=== PATIENT | male | born 1950 | race Caucasian/White ===

== ENCOUNTER → 2017-08-30 | Outpatient (CLI) | payer MEDICARE ==
[~2017-08-30] MED LIST: ALBU90OI INH; ALPR.25 PO; ATEN50 PO; CAPT25 PO; CARV25 PO; CEFD300 PO; Coq-10100 MG PO; HYDACE7.5 PO; HYDCHL12.5 PO; IPRA.03NI; L-ARGININE1000 MG PO; Naprosyn500 MG PO; Norco 5-325 Ta1 EACH PO; POLY17UD PO; POTA10T PO; PROM25 PO; SERT50; VITAMINS; ZOLP10 PO; ZOLP12.5 PO; [UNRECOGNIZED DRUG - OTHER] PO
== END | disposition home or self-care (01) ==
LOC: LAB SHORT 18:09
DX: N40.0 Benign prostatic hyperplasia without lower urinary tract symptoms (principal)
CPT/HCPCS: 87086

== ENCOUNTER → 2018-01-19 | Outpatient (CLI) | payer MEDICARE ==
[2018-01-19 12:08] LABS: BASOPHILS ABSOLUTE AUTO 0.07 K/mm3 (0.00-0.23); BASOPHILS PERCENT AUTO 1 % (0-2); EOSINOPHILS ABSOLUTE AUTO 0.12 K/mm3 (0.00-0.68); EOSINOPHILS PERCENT AUTO 1 % (0-6); Hemoglobin 15.1 g/dL (13.5-17.5); IMMATURE GRAN ABSOLUTE AUTO 0.02 K/mm3 (0.00-0.10); IMMATURE GRAN PERCENT AUTO 0 % (0-1); LYMPHOCYTES ABSOLUTE AUTO 1.42 K/mm3 (0.84-5.20); LYMPHOCYTES PERCENT AUTO 15 % (21-46); MONOCYTES ABSOLUTE AUTO 0.82 K/mm3 (0.16-1.47); MONOCYTES PERCENT AUTO 9 % (4-13); Mean Corpuscular HGB 30.6 pg (26.0-34.0); Mean Corpuscular Volume 85 fL (80-100); Mean Platelet Volume 10.2 fL (9.1-12.4); NEUTROPHILS ABSOLUTE AUTO 6.78 K/mm3 (1.96-9.15); NEUTROPHILS PERCENT AUTO 73 % (41-73); Platelet Count 256 K/mm3 (150-400); RDW Coefficient Variation 12.6 % (11.7-14.2); RDW Standard Deviation 38.7 fL (35.1-46.3); Red Blood Cell Count 4.93 M/mm3 (4.30-5.90); White Blood Cell Count 9.23 K/mm3 (4.00-11.30)
[2018-01-19 12:17] LABS: Alanine Aminotransfer (ALT/SGP 28 U/L (12-78); Albumin, Blood 4.1 g/dL (3.4-5.0); Albumin/Globulin Ratio 1.1 (0.8-1.8); Alk Phos 96 U/L (40-126); Anion Gap 10 mmol/L (6-16); Aspartate Aminotrans (AST/SGOT 17 U/L (12-37); Bilirubin, Total 0.4 mg/dL (0.1-1.0); Blood Urea Nitrogen 12 mg/dL (8-24); Bun/Creatinine Ratio 14.3 (12.0-20.0); CO2, Blood 27 mmol/L (21-32); Calcium, Blood 8.9 mg/dL (8.5-10.1); Chloride, Blood 102 mmol/L (98-108); Creatinine, Blood 0.84 mg/dL (0.60-1.20); Globulin, Blood 3.6 g/dL (2.2-4.0); Glomerular Filtration Rate >60 (60-); Glucose, Blood 109 mg/dL (70-99); Potassium, Blood 3.9 mmol/L (3.5-5.5); Sodium, Blood 139 mmol/L (136-145); Total Protein, Blood 7.7 g/dL (6.4-8.2); Troponin I <0.017 ng/mL (0.000-0.040)
== END ==
LOC: LAB SHORT 11:56 → LAB EV 11:56
PROVIDERS: General Practice
DX: R07.9 Chest pain, unspecified (principal); J40 Bronchitis, not specified as acute or chronic
CPT/HCPCS: 80053; 84484; 85025

== ENCOUNTER → 2018-09-24 | Outpatient (CLI) | payer MEDICARE | END | disposition home or self-care (01) | LOC: LAB SHORT 19:24 → LAB 19:24 | DX: J02.9 Acute pharyngitis, unspecified (principal) | CPT/HCPCS: 87081 ==

== ENCOUNTER 2020-03-23 19:54 | Emergency (ER) | payer MEDICARE ==
[~2020-03-23] VITALS: Ht 172.7 cm; Wt 70.3 kg
[2020-03-23 20:25] LABS: BASOPHILS ABSOLUTE AUTO 0.05 K/mm3 (0.00-0.23); BASOPHILS PERCENT AUTO 1 % (0-2); EOSINOPHILS PERCENT AUTO 3 % (0-6); Hematocrit 43.8 % (37.0-53.0); Hemoglobin 15.6 g/dL (13.5-17.5); IMMATURE GRAN ABSOLUTE AUTO 0.02 K/mm3 (0.00-0.10); IMMATURE GRAN PERCENT AUTO 0 % (0-1); LYMPHOCYTES ABSOLUTE AUTO 2.39 K/mm3 (0.84-5.20); LYMPHOCYTES PERCENT AUTO 30 % (21-46); MONOCYTES ABSOLUTE AUTO 0.72 K/mm3 (0.16-1.47); MONOCYTES PERCENT AUTO 9 % (4-13); Mean Corpuscular HGB 31.6 pg (26.0-34.0); Mean Corpuscular HGB Conc 35.6 g/dL (31.5-36.5); Mean Corpuscular Volume 89 fL (80-100); Mean Platelet Volume 10.9 fL (9.1-12.4); NEUTROPHILS ABSOLUTE AUTO 4.66 K/mm3 (1.96-9.15); NEUTROPHILS PERCENT AUTO 58 % (41-73); Platelet Count 208 K/mm3 (150-400); RDW Coefficient Variation 11.8 % (11.7-14.2); RDW Standard Deviation 37.3 fL (35.1-46.3); Red Blood Cell Count 4.93 M/mm3 (4.30-5.90); White Blood Cell Count 8.04 K/mm3 (4.00-11.30)
[2020-03-23 20:42] LABS: Alanine Aminotransfer (ALT/SGP 35 U/L (12-78); Albumin, Blood 3.9 g/dL (3.4-5.0); Albumin/Globulin Ratio 1.1 (0.8-1.8); Alk Phos 73 U/L (50-136); Anion Gap 4 mmol/L (6-16); Aspartate Aminotrans (AST/SGOT 46 U/L (12-37); Bilirubin, Total 0.4 mg/dL (0.1-1.0); Blood Urea Nitrogen 13 mg/dL (8-24); Bun/Creatinine Ratio 17.4 (12.0-20.0); CO2, Blood 24 mmol/L (21-32); Calcium, Blood 8.7 mg/dL (8.5-10.1); Chloride, Blood 106 mmol/L (98-108); Creatinine, Blood 0.75 mg/dL (0.60-1.20); Globulin, Blood 3.7 g/dL (2.2-4.0); Glomerular Filtration Rate >60 (60-); Glucose, Blood 114 mg/dL (70-99); Potassium, Blood 4.8 mmol/L (3.5-5.5); Sodium, Blood 134 mmol/L (136-145); Total Protein, Blood 7.6 g/dL (6.4-8.2)
[2020-03-23] MEDS ORDERED: MOXI400 PO (22:13)
== END 2020-03-23 22:41 | disposition home or self-care (01) ==
LOC: ER 19:54
PROVIDERS: Emergency Medicine
DX: K92.1 Melena (principal); C61 Malignant neoplasm of prostate; F17.210 Nicotine dependence, cigarettes, uncomplicated; Z88.0 Allergy status to penicillin; Z88.8 Allergy status to other drugs, medicaments and biological substances; Z79.899 Other long term (current) drug therapy
CPT/HCPCS: 36415; 74177; 80053; 85025; 99285-25; Q9967

== ENCOUNTER 2021-12-27 01:54 | Inpatient (IN) | payer MEDICARE ==
[~2021-12-27] VITALS: Ht 172.7 cm; Wt 64.0 kg
[~2021-12-27 01:54] MED LIST changes: +MOXI400 PO
[2021-12-27 02:20] LABS: BASOPHILS ABSOLUTE AUTO 0.11 K/mm3 (0.00-0.23); BASOPHILS PERCENT AUTO 1 % (0-2); EOSINOPHILS ABSOLUTE AUTO 0.61 K/mm3 (0.00-0.68); EOSINOPHILS PERCENT AUTO 6 % (0-6); Hematocrit 40.6 % (37.0-53.0); IMMATURE GRAN ABSOLUTE AUTO 0.04 K/mm3 (0.00-0.10); IMMATURE GRAN PERCENT AUTO 0 % (0-1); LYMPHOCYTES ABSOLUTE AUTO 2.69 K/mm3 (0.84-5.20); LYMPHOCYTES PERCENT AUTO 26 % (21-46); MONOCYTES PERCENT AUTO 9 % (4-13); Mean Corpuscular HGB 29.6 pg (26.0-34.0); Mean Corpuscular HGB Conc 34.5 g/dL (31.5-36.5); Mean Corpuscular Volume 86 fL (80-100); Mean Platelet Volume 10.5 fL (9.1-12.4); NEUTROPHILS ABSOLUTE AUTO 5.93 K/mm3 (1.96-9.15); NEUTROPHILS PERCENT AUTO 58 % (41-73); Platelet Count 252 K/mm3 (150-400); RDW Coefficient Variation 12.8 % (11.7-14.2); RDW Standard Deviation 40.2 fL (35.1-46.3); Red Blood Cell Count 4.73 M/mm3 (4.30-5.90); White Blood Cell Count 10.28 K/mm3 (4.00-11.30)
[2021-12-27 02:35] LABS: International Normalized Ratio 1.02; Prothrombin Time Results 10.7 Sec (9.7-11.5)
[2021-12-27 02:39] LABS: Albumin, Blood 3.7 g/dL (3.4-5.0); Albumin/Globulin Ratio 1.2 (0.8-1.8); Bilirubin, Total 0.3 mg/dL (0.1-1.0); Bun/Creatinine Ratio 15.3 (12.0-20.0); Calcium, Blood 8.7 mg/dL (8.5-10.1); Creatinine, Blood 0.85 mg/dL (0.60-1.20); Potassium, Blood 3.6 mmol/L (3.5-5.5); Total Protein, Blood 6.7 g/dL (6.4-8.2)
[2021-12-27 03:26] LABS: Influenza A, PCR NEGATIVE (NEGATIVE); Influenza B, PCR NEGATIVE (NEGATIVE); Resp Syncytial Virus, PCR NEGATIVE (NEGATIVE); SARS-Cov-2 (COVID-19) PCR, MMC NEGATIVE (NEGATIVE)
[2021-12-27 04:33] LABS: Source, Urine Voided
[2021-12-27 04:39] LABS: Bilirubin, Urine Neg (Neg); Blood, Urine Neg (Neg); Glucose Qualitative, Urine Neg (Neg); Ketones, Urine Neg (Neg); Leukocyte Esterase, Urine Neg (Neg); Nitrite, Urine Neg (Neg); Protein, Urine 3+ (Neg); Urobilinogen, Urine NORM (Normal); pH, Urine 6.5 (5.0-8.0)
[2021-12-27 04:46] LABS: Appearance, Urine Clear (Clear); Color, Urine Yellow (P-Yellow)
[2021-12-27 04:47] LABS: Bacteria Not Seen /hpf; Red Blood Cells, Urine Not Seen /hpf (0-2); Squamous Epithelial Cells Not Seen /hpf (Few); White Blood Cells, Urine Not Seen /hpf (0-5)
[2021-12-27] MEDS ORDERED: LISI20 PO (04:48)
[2021-12-27] MEDS ORDERED: ASPI325 PO (18:59)
--- NOTE | 2021-12-27 19:41 | NUR ---
SUMMARY- PT A/O X4. ADMITTED 1415 TO 336. DENIES CHEST PAIN ALL SHIFT. BLOOD PRESURES HIGH SINCE ADMIT. WILL RECEIVE METOPROLOL DOSE HS. KURT VELOZ AWARE TO F/U AND NOTIFY MD IF REMAINS ELEVATED. PT TOLERATING FOOD AND FLUIDS AND HAS NO COMPLAINTS. WILL STAY TONIGHT TO [facility].
--- NOTE | 2021-12-27 19:43 | NUR ---
1415 PT ADMITTED TO ROOM 336 FROM ED IN WHEELCHAIR, SBA AMBULATED TO BED, STEADY ON FEET. ORIENTED TO CALL LIGHT AND ROOM SET UP AND SAFETY. DENIES CHEST PAIN. INSTRUCTED TO CALL IF C.P. OCCURS. TELE SET UP.
[2021-12-28 05:56] LABS: BASOPHILS ABSOLUTE AUTO 0.08 K/mm3 (0.00-0.23); BASOPHILS PERCENT AUTO 1 % (0-2); EOSINOPHILS ABSOLUTE AUTO 0.35 K/mm3 (0.00-0.68); EOSINOPHILS PERCENT AUTO 4 % (0-6); Hematocrit 41.2 % (37.0-53.0); Hemoglobin 14.2 g/dL (13.5-17.5); IMMATURE GRAN ABSOLUTE AUTO 0.04 K/mm3 (0.00-0.10); IMMATURE GRAN PERCENT AUTO 0 % (0-1); LYMPHOCYTES ABSOLUTE AUTO 1.98 K/mm3 (0.84-5.20); LYMPHOCYTES PERCENT AUTO 20 % (21-46); MONOCYTES ABSOLUTE AUTO 0.93 K/mm3 (0.16-1.47); MONOCYTES PERCENT AUTO 9 % (4-13); Mean Corpuscular HGB 30.1 pg (26.0-34.0); Mean Corpuscular HGB Conc 34.5 g/dL (31.5-36.5); Mean Corpuscular Volume 87 fL (80-100); Mean Platelet Volume 10.7 fL (9.1-12.4); NEUTROPHILS ABSOLUTE AUTO 6.47 K/mm3 (1.96-9.15); NEUTROPHILS PERCENT AUTO 66 % (41-73); Platelet Count 203 K/mm3 (150-400); RDW Coefficient Variation 13.1 % (11.7-14.2); RDW Standard Deviation 41.5 fL (35.1-46.3); Red Blood Cell Count 4.72 M/mm3 (4.30-5.90); White Blood Cell Count 9.85 K/mm3 (4.00-11.30)
[2021-12-28 06:17] LABS: Alanine Aminotransfer (ALT/SGP 30 U/L (12-78); Albumin, Blood 3.5 g/dL (3.4-5.0); Albumin/Globulin Ratio 1.2 (0.8-1.8); Alk Phos 66 U/L (50-136); Anion Gap 7 mmol/L (6-16); Aspartate Aminotrans (AST/SGOT 25 U/L (12-37); Bilirubin, Total 0.5 mg/dL (0.1-1.0); Blood Urea Nitrogen 11 mg/dL (8-24); Bun/Creatinine Ratio 14.1 (12.0-20.0); CHOL/HDL RATIO 7.3; CO2, Blood 26 mmol/L (21-32); Calcium, Blood 8.8 mg/dL (8.5-10.1); Chloride, Blood 104 mmol/L (98-108); Cholesterol 284 mg/dL (50-200); Creatinine, Blood 0.78 mg/dL (0.60-1.20); Globulin, Blood 2.9 g/dL (2.2-4.0); Glomerular Filtration Rate 96 (60-); Glucose, Blood 104 mg/dL (70-99); HDL Cholesterol 39 mg/dL (>39); Low Density Lipoprotein Chol 197 mg/dL (0-110); Potassium, Blood 3.8 mmol/L (3.5-5.5); Sodium, Blood 137 mmol/L (136-145); Total Protein, Blood 6.4 g/dL (6.4-8.2); Triglycerides 241 mg/dL (30-160); Very Low Density Lipoprot Chol 48 mg/dL (6-32)
--- NOTE | 2021-12-28 06:40 | NUR ---
PT ARRIVED TO ICU BED 8 FOLLOWING A WRAPPER SORTER CALLED AT 0600, HE DENIES ANY PAIN AT THIS TIME. NO IV FLUIDS INFUSING, SALINE LOCK IN LEFT AC AND LEFT WRIST. LUNGS CLEAR, ABDOMEN SOFT, NON TENDER, FEET WITH PALPABLE PULSES, NO EDEMA. PT'S BP ELEVATED, 214/98. HR58 SATS 97%
--- NOTE | 2021-12-28 06:41 | NUR ---
PT who was admitted around 2 pm yesterday for syncopla episode was being monitered on remote tle all night was as low as 52 sinus val up to 66 & had abn ct pulm angiogram yesterday had CTA ordered for this AM being transported to CT scan when he had second syncopal episode with astole reported by monitor and storage bin tender at 0610 am & rapid response team to bedside . PT had elevated bp 230/110 val pulse 55. room air sat 98 denies chest pain . EKG done. PT transferred to ICU 8 alert talking. & Daughter notified or room transfer & second syncopal event.
--- NOTE | 2021-12-28 07:43 | NUR ---
Received report from Prudence VELOZ. Patient is laying on his right side in bed and awake and able to communicate his needs. He is on RA and sats 99%. Called Dr Rand and she will be in shortly. Echo is done . He is hypertensive systolic 215 and currently 177 after hydrazine. He has 18ga IV in LW and 20ga in LAC both flushed and SL'd. Tried to c all spouse and goes right to voice mail. NANCI TIDWELL
--- NOTE | 2021-12-28 09:30 | NUR ---
Patient up to bathroom without difficulty, no changes to VS, remains hypertensive. Daughter at bedside. construction or leak gang laborer is here to take for temp pacer.
--- NOTE | 2021-12-28 11:27 | NUR ---
[facility] with [facility], received report from Oliver VELOZ. Patient wanted to get out of bed and has been informed not while temp pacer in per Dr Howell. VSS. He remains on RA and sats >95%. Family at bedside.
--- NOTE | 2021-12-28 13:23 | NUR ---
Patient remains SR 60, sats 94 on RA. Patient resting with lights off. No significant changes with patient.
--- NOTE | 2021-12-28 15:59 | NUR ---
Patient 600 ml yellow urine out, He is tolerating small amounts of repositioning. He is tolerating small amounts of snacks and water. He remains on RA and sats >95%. YAW. No changes to temp pacer and have not seen and pacer events.
--- NOTE | 2021-12-28 18:22 | NUR ---
Patient was able to get short nap in and was awakened to eat dinner. He has another 600 ml yellow urine out. He is independent with eating and positioning. Medicated with lisinopril and Hydralazine.No pacer events as now.
--- NOTE | 2021-12-28 22:09 | NUR ---
ASSUMED CARE AT 1900 PATIENT IS ALERT AND ORIENTED X4. 02 SATS 95% ON RA, DENIES SOB. HR SR @80s, TEMPORARY PACER IN RIGHT IJ, DRESSING C/D/I. PATIENT HYPERTENISVE SYSTOLIC UP TO 2O0, TALKED WITH DR. HERNANDEZ AND CHANGED HYDRALAZINE TO Q4 HOURS PRN, SYSTOLIC IN THE 160s CURRENTLY. PATIENT DENIES CP/PRESSURE. DENIES ABDOMINAL PAIN, USES BEDPAN AND URINAL. REPOSITIONS SELF IN BED. CALL LIGHT IN REACH.
[2021-12-29 03:43] LABS: BASOPHILS ABSOLUTE AUTO 0.05 K/mm3 (0.00-0.23); BASOPHILS PERCENT AUTO 0 % (0-2); EOSINOPHILS ABSOLUTE AUTO 0.01 K/mm3 (0.00-0.68); EOSINOPHILS PERCENT AUTO 0 % (0-6); Hematocrit 43.7 % (37.0-53.0); Hemoglobin 15.3 g/dL (13.5-17.5); IMMATURE GRAN ABSOLUTE AUTO 0.05 K/mm3 (0.00-0.10); IMMATURE GRAN PERCENT AUTO 0 % (0-1); LYMPHOCYTES ABSOLUTE AUTO 1.04 K/mm3 (0.84-5.20); LYMPHOCYTES PERCENT AUTO 8 % (21-46); MONOCYTES ABSOLUTE AUTO 1.02 K/mm3 (0.16-1.47); MONOCYTES PERCENT AUTO 8 % (4-13); Mean Corpuscular HGB 29.7 pg (26.0-34.0); Mean Corpuscular Volume 85 fL (80-100); Mean Platelet Volume 10.4 fL (9.1-12.4); NEUTROPHILS ABSOLUTE AUTO 11.09 K/mm3 (1.96-9.15); NEUTROPHILS PERCENT AUTO 84 % (41-73); Platelet Count 243 K/mm3 (150-400); RDW Coefficient Variation 12.9 % (11.7-14.2); RDW Standard Deviation 40.3 fL (35.1-46.3); Red Blood Cell Count 5.16 M/mm3 (4.30-5.90); White Blood Cell Count 13.26 K/mm3 (4.00-11.30)
[2021-12-29 04:02] LABS: Albumin, Blood 3.9 g/dL (3.4-5.0); Albumin/Globulin Ratio 1.2 (0.8-1.8); Bilirubin, Total 0.6 mg/dL (0.1-1.0); Bun/Creatinine Ratio 14.2 (12.0-20.0); Calcium, Blood 9.2 mg/dL (8.5-10.1); Creatinine, Blood 0.85 mg/dL (0.60-1.20); Globulin, Blood 3.2 g/dL (2.2-4.0); Potassium, Blood 3.4 mmol/L (3.5-5.5); Total Protein, Blood 7.1 g/dL (6.4-8.2)
--- NOTE | 2021-12-29 06:16 | NUR ---
SHIFT SUMMARY PATIENT ALERT AND ORIENTED X4. 02 SATS >93% ON RA, DENIES SOB. HR 80s-105, NSR. TEMP PACER TO RIGHT IJ. BP WITH SYSTOLIC 140s-160s, MEDICATED PER EMAR. PATIENT ABLE TO REPOSITION SELF. USES URINAL AND BEDPAN. REPLACED POTASSIUM THIS AM. CALL LIGHT IN REACH
--- NOTE | 2021-12-29 08:58 | NUR ---
[place] of Care: Care assumed at 0700hr. Patient sleeping and easily roused to verbal stimuli. A/o x4. Denies pain, discomfort, SOB, or dyspnea. VSS, spO2-96% on RA. Temp-venous pacer to rt IJ, [place] HR shows sinus rhythm in the 80's to 105. Dressing to temp-pacer CDI. Unable to assess numeric markings r/t bundled wiring beneath dressing. Using urinal in bed to void without difficulty. Peripheral IV to lt AC patent and intact. Peripheral IV to lt wrist D/C'd per pain when flushing IV. Plan to place additional peripheral IV. Call light in reach, makes needs known. Will continue to monitor.
--- NOTE | 2021-12-29 11:39 | NUR ---
Pt. is awake in bed and welcomes my visit. Pt. is pleasant and quickly displays evidence of being a man of shannan. Listen pastorally and build rapport. Facilitated a life review. Spouse arrived midway through the visit. Pt. has no present significant areas of stress. Prayed with Pt. and spouse. Pt. displays evidence of agreement and hope. Pt. verbalizes gratitude for the spiritual care visit, and invited this home office claims examiner to return.
[2021-12-29 12:23] LABS: Bun/Creatinine Ratio 17.9 (12.0-20.0); Calcium, Blood 9.7 mg/dL (8.5-10.1); Creatinine, Blood 0.78 mg/dL (0.60-1.20); Potassium, Blood 3.7 mmol/L (3.5-5.5)
--- NOTE | 2021-12-29 17:42 | NUR ---
Shift Summary: No significant changes throughout shift. [place] heart rate/rhythm at all times, no pacing via temp pacer to rt IJ. Heart rate/rhythm sinus in the 70's-80's, while sleeping, but increasing to the 90's-low 100's when awake. Dr. Grijalva started 25mg of metoprolol ER this morning. Patient's BP also increased to systolic of 170's-180's, effectively managed with x2 doses of prn hydralazine. Dr. Grijalva contacted regarding increase in HR and BP this afternoon. Received order to increase metoprolol from once daily to BID. All other VSS stable throughout shift. Continues to deny pain, discomfort, SOB, or dyspnea. Tolerating regular adult diet without difficulty. Voiding using urinal in bed and BM via bedpan. Temp-pacer dressing to rt IJ remains C/D/I. Call light in reach, makes needs known. Will continue to monitor until report to NOC shift RN.
--- NOTE | 2021-12-29 19:55 | NUR ---
ASSUMED CARE OF PT AT 191. REPORT RECEIVED AT BEDSIDE. INSPECTED TEMP PACER SETTINGS AND LINE PLACEMENT. VERIFIED WELL WITH THIS SHIFT CHARGE NURSE, MAGDIEL ALBA MEASUREMENT THAT SHE OBSERVED FROM PREVIOUS DAY WAS CONSISTANT. PT VERBALIZES CONCERNS ABOUT HIS TEMPERATURE 100.1. TEACHING DONE ON THIS. WILL CONTINUE TO TREND. NO COMPLAINTS OF CHEST PAIN OR PRESSURE. DOES STATE THAT HE HAS MILD HEADACHE. NO INTERENTION REQUESTED. WILL REVIEW CHART AND PLAN OF CARE FOR THIS PT.
--- NOTE | 2021-12-30 03:31 | NUR ---
PT NOTED TO HAVE A SLEEP APNEIC-TYPE RESPIRATION PATTERN. DURING THIS TIME, PT WOULD DESATURATE TO 84-86 PERCENT ON ROOM AIR. DID PLACE 2 L/M O2 PER NASAL CANNULA. PT HAS BEEN MAINTIANING > 90 PERCENT AFTER THIS. PT STATED THAT HE HAS NEVER HAD A SLEEP STUDY OR BEEN TOLD HE MAY HAVE SLEEP APNEA. DID ENCOURAGE PT TO SPEAK WITH HIS PCP TO ADDRESS THIS. WILL CONTINUE TO MONITOR.
[2021-12-30 04:26] LABS: BASOPHILS ABSOLUTE AUTO 0.07 K/mm3 (0.00-0.23); BASOPHILS PERCENT AUTO 1 % (0-2); EOSINOPHILS ABSOLUTE AUTO 0.21 K/mm3 (0.00-0.68); EOSINOPHILS PERCENT AUTO 2 % (0-6); Hematocrit 42.4 % (37.0-53.0); Hemoglobin 14.8 g/dL (13.5-17.5); IMMATURE GRAN ABSOLUTE AUTO 0.03 K/mm3 (0.00-0.10); IMMATURE GRAN PERCENT AUTO 0 % (0-1); LYMPHOCYTES ABSOLUTE AUTO 1.71 K/mm3 (0.84-5.20); LYMPHOCYTES PERCENT AUTO 18 % (21-46); MONOCYTES ABSOLUTE AUTO 1.13 K/mm3 (0.16-1.47); MONOCYTES PERCENT AUTO 12 % (4-13); Mean Corpuscular HGB 29.8 pg (26.0-34.0); Mean Corpuscular HGB Conc 34.9 g/dL (31.5-36.5); Mean Corpuscular Volume 86 fL (80-100); Mean Platelet Volume 10.4 fL (9.1-12.4); NEUTROPHILS ABSOLUTE AUTO 6.32 K/mm3 (1.96-9.15); NEUTROPHILS PERCENT AUTO 67 % (41-73); Platelet Count 212 K/mm3 (150-400); RDW Coefficient Variation 13.2 % (11.7-14.2); RDW Standard Deviation 40.9 fL (35.1-46.3); Red Blood Cell Count 4.96 M/mm3 (4.30-5.90); White Blood Cell Count 9.47 K/mm3 (4.00-11.30)
[2021-12-30 04:43] LABS: Bun/Creatinine Ratio 17.4 (12.0-20.0); Calcium, Blood 9.4 mg/dL (8.5-10.1); Creatinine, Blood 0.92 mg/dL (0.60-1.20); Potassium, Blood 4.2 mmol/L (3.5-5.5)
--- NOTE | 2021-12-30 05:45 | NUR ---
PT HAS BEEN ABLE TO REST SOME THIS NIGHT. NO COMPLAINTS OF CHEST PAIN OR PRESSURE. NO COMPLAINTS OF DYSPNEA. DOES HAVE 2 L/M OXYGEN PER NASAL CANNULA SECONDARY TO PROBABLE SLEEP APNEIC TYPE RESPIRATIONS WHILE ASLEEP. PT HAS BEEN ABLE TO MOVE ABOUT BED ON HIS OWN. HAVE NOT HAD ANY PACING THIS NIGHT. HEART RATE REMAINS NEAR 100. SEE VITAL SIGN FLOWSHEET FOR DETAILS. WILL CONTINUE TO MONITOR PT, AND WILL REPORT OFF TO ONCOMING RN.
--- NOTE | 2021-12-30 06:46 | NUR ---
DR RODRÍGUEZ COMES IN TO SEE PT.
--- NOTE | 2021-12-30 07:19 | NUR ---
TOOK OVER CARE OF PT AT 0715, PT RESTING ON 2LNC
--- NOTE | 2021-12-30 15:59 | NUR ---
SUMMARY NEURO; WNL LUNGS; WNL SKIN;WNL CARDIAC; TEMP PACER IN PLACE, PT HR NOT LOW ENOUGH TO INITIATE GI; BM WITH PELLETS AND LOOSE MICHELE : WNL
--- NOTE | 2021-12-30 20:00 | NUR ---
ASSUMED CARE OF PT AT 1915. REPORT RECEIVED. PT PRESENTS IN BED BED VISITING WITH FAMILY. PT DENIES COMPLAINTS OF CHEST PAIN OR PRESSURE. NO COMPLAINTS OF VERTIGO OR SYNCOPE. PT ALERT AND ORIENTED, PLEASANT AND COOPERATIVE WITH CARE AND ASSESSMENT. PT CONTINUES WITH TEMPORARY PACER IN PLACE. WILL REVIEW CHART AND PLAN OF CARE FOR THIS PT.
--- NOTE | 2021-12-31 03:11 | NUR ---
PT HAS HAD SOME HEART RATES THAT APPROACHED LOW 60'S BPM. NO PACER SPIKING DETECTED. PT TEACHING HAS BEEN DONE ON METOPROLOL AND AMLODIPINE. PT STATES THAT HE FELT IT MADE HIS BLOOD PRESSURES DROP SEVERELY FROM DOSE HE TOOK IN AM. REVEIWED CHART AND MONITORING SYSTEM. WAS NOT ABLE TO FIND THAT HE HAD HYPOTENSIVE EPISODES AFTER THE MEDICATION. HAVE GOTTEN PT UP TWICE TO BEDSIDE COMMODE WHERE HE VOIDS Q.S. HAS TWO SMALL BM'S. AGAIN NO COMPLAINTS OF CHEST PAIN OR PRESSURES.
[2021-12-31 05:52] LABS: BASOPHILS ABSOLUTE AUTO 0.07 K/mm3 (0.00-0.23); BASOPHILS PERCENT AUTO 1 % (0-2); EOSINOPHILS ABSOLUTE AUTO 0.48 K/mm3 (0.00-0.68); EOSINOPHILS PERCENT AUTO 5 % (0-6); Hematocrit 42.3 % (37.0-53.0); Hemoglobin 14.6 g/dL (13.5-17.5); IMMATURE GRAN ABSOLUTE AUTO 0.05 K/mm3 (0.00-0.10); IMMATURE GRAN PERCENT AUTO 1 % (0-1); LYMPHOCYTES ABSOLUTE AUTO 1.88 K/mm3 (0.84-5.20); LYMPHOCYTES PERCENT AUTO 21 % (21-46); MONOCYTES ABSOLUTE AUTO 0.87 K/mm3 (0.16-1.47); MONOCYTES PERCENT AUTO 10 % (4-13); Mean Corpuscular HGB 29.8 pg (26.0-34.0); Mean Corpuscular HGB Conc 34.5 g/dL (31.5-36.5); Mean Corpuscular Volume 86 fL (80-100); Mean Platelet Volume 10.1 fL (9.1-12.4); NEUTROPHILS ABSOLUTE AUTO 5.48 K/mm3 (1.96-9.15); NEUTROPHILS PERCENT AUTO 62 % (41-73); Platelet Count 193 K/mm3 (150-400); RDW Coefficient Variation 12.8 % (11.7-14.2); RDW Standard Deviation 40.6 fL (35.1-46.3); White Blood Cell Count 8.83 K/mm3 (4.00-11.30)
[2021-12-31 06:42] LABS: Bun/Creatinine Ratio 20.3 (12.0-20.0); Calcium, Blood 9.2 mg/dL (8.5-10.1); Creatinine, Blood 0.89 mg/dL (0.60-1.20); Potassium, Blood 4.2 mmol/L (3.5-5.5)
--- NOTE | 2021-12-31 07:12 | NUR ---
PT ABLE TO REST SOME THIS NIGHT. REMAINS WITHOUT ANY NEED FOR ASSIST PACING FROM TRANSVENOUS PACER. PT HAS BEEN ABLE TO GET UP TO BEDSIDE COMMODE SEVERAL TIMES WITH STANDBY ASSIST WITHOUT BEING DIZZY. WILL CONTINUE TO MONITOR PT, AND WILL REPORT OFF TO ONCOMING RN.
--- NOTE | 2021-12-31 07:13 | NUR ---
TOOK OVER CARE OF PT AT 0700, PT RESTING ON RA
--- NOTE | 2021-12-31 14:30 | NUR ---
Assumed care of patient from Paula RN. Assisted patient to bathroom and was SBA with cords. No changes to VS when getting up and back to bed. Patient is independent with positioning for comfort. He remains on RA and sats >95
--- NOTE | 2021-12-31 18:10 | NUR ---
Patient has been resting since taken over care and has cesilia up once to bathroom with SBA. He is currently up in chair eating dinner. He asked for anti-diahhrea and talked with Dr Silvestre and gave order. VSS, he denies any pain or need for intervention.
--- NOTE | 2022-01-01 06:00 | NUR ---
PT REPORT CALLED TO MAGDIEL HERNANDEZ ON MEDICAL. PT TRANSPORTED TO MEDICAL FLOOR ON HEART MONITOR WITHOUT INCIDENT. PT GIVEN 10 MG OF HYDRALAZINE PRIOR TO TRANSFER DUE TO SOME PERSISTANT HYPERTENSION.
--- NOTE | 2022-01-01 07:41 | NUR ---
PT TRANSFERED FROM ICU. PT VERY PLEASANT A/0X4 INDEPENDENT IN ROOM. PLACED ON TELEMETRY. LUNGS CLEAR NO EDEMA NOTED TO BLE. BLOOD PRESSURE IMPROVED TO SBP 150s. TEMP. PACEMAKER SITE WITH CHG TEGADERM C/D/I. PT WANTING TO BE DISCHARGED TODAY. ENDORSED TO ONCOMING RN.
--- NOTE | 2022-01-01 08:00 | NUR ---
PT PLEASANT TALKING A/O X3. STATES SOME OVERALL WEAK, BUT FEELS READY TO GO HOME. DENIES FEELING OF DIZZINESS, C/PN OR PRESSURE, H/R IRREG. NO MURMUR NOTED. PER TELE S PAGE AT 82. DID TACH TO 130 WHEN UP WALKING ABOUT ROOM. LUNGS CLEAR T/O. RESP EASY, UNLABORED. ON R.A. BT HYPO. STATES B/M RECENTLY THIS AM. VOIDS PER BATHROOM. INDEPENDANT IN ROOM. PT HAS SMALL DRY INCISION ON RT OF NECK COVERED BY WINDOOW DRESSING. NO EDEMA NOTED. BED IN LOW POSITION, CALL LITE IN REACH, CALLS APPROP. PENDING ZIOPATCH TO BE PLACED TO FACILITATE DISCHARGE.
--- NOTE | 2022-01-01 10:15 | NUR ---
CALL IN TO DR LAURENT FOR CARDIOLOGY QUESTIONS ON MEDICATIONS, LMTC
--- NOTE | 2022-01-01 11:20 | NUR ---
SPOKE TO DR MARQUEZ IN [facility], HE IS CHANGING PER PT REQUEST
--- NOTE | 2022-01-01 17:24 | NUR ---
PT HAS BEEN QUIET AND PLEASANT TODAY. KAILA FROM ICU CAME TO ADVISE PT ALEHTEA BE ABLE TO OBTAIN ZIOPATCH TODAY. THIS DID NOT OCCUR. DID CALL HIM BACK TO CLARIFY. WILL BE SUNDAY. DR LAURENT WAS IN TO ADJUST HIS MEDS SOME TODAY. PT PLEASED. PT STATES REALLY READY TO GO HOME, EXPECTING TOMORROW FOR PATCH THEN HOME. NO S/S [id number]. HE BEEN UP TO BATHROOM AND ABOUT ROOM TODAY. BED IN LOW POSITIOIN, CALL LITE IN REACH. CALLS APROP
--- NOTE | 2022-01-02 04:46 | NUR ---
PT HAD AN UNEVENTFUL NIGHT. REPORTS THAT HE IS GOING HOME TODAY NO MATTER WHAT HAS HE BELIEVES HE HAS BEEN HERE FOR TOO LONG. NO CHANGES NOTED THIS SHIFT. A/0X4 AND INDEPENDENT IN ROOM.
[2022-01-02] MEDS ORDERED: METO25 PO (11:52)
--- NOTE | 2022-01-02 16:03 | NUR ---
DISCHARGE- PATIENT WAS DISCHARGED TO HOME AFTER PLACEMENT OF ZIO PATCH TODAY. HIS TRANSPORTED. MEDICATION PRESCRIPTIONS WERE FAXED TO [facility]. HE WAS PROVIDED WITH EDUCATION ON NEW MEDICATIONS AND HEART MONITORS. HE HAS A FOLLOW UP ALREADY SCHEDULED AND IS AWARE OF THE DATE. HE WAS WHEELED DOWNSTAIRS TO MEET HIS IN THE PARKING LOT.
== END 2022-01-02 13:58 | disposition home or self-care (01) | DRG 291 ==
LOC: ER 01:54 → ERHOLD 01:55 → ICUE 01:55 → MEDS 14:10 → ICUE 12-28 06:32 → MEDS 01-01 05:53
PROVIDERS: Emergency Medicine; Internal Medicine; Internal Medicine Cardiovascular Disease; ADMIT Family Medicine
PROC: 5A1223Z Performance of Cardiac Pacing, Continuous (ICD-10-PCS; principal; 2021-12-29)
DX: I11.0 Hypertensive heart disease with heart failure (principal); I46.9 Cardiac arrest, cause unspecified; I50.33 Acute on chronic diastolic (congestive) heart failure; F17.203 Nicotine dependence unspecified, with withdrawal; R00.1 Bradycardia, unspecified; J44.9 Chronic obstructive pulmonary disease, unspecified; I25.10 Atherosclerotic heart disease of native coronary artery without angina pectoris; I70.0 Atherosclerosis of aorta; C61 Malignant neoplasm of prostate; E78.5 Hyperlipidemia, unspecified; I73.9 Peripheral vascular disease, unspecified; J32.9 Chronic sinusitis, unspecified; Z95.1 Presence of aortocoronary bypass graft; Z98.61 Coronary angioplasty status; Z88.0 Allergy status to penicillin; Z88.2 Allergy status to sulfonamides; Z79.82 Long term (current) use of aspirin; Z79.811 Long term (current) use of aromatase inhibitors; Z79.899 Other long term (current) drug therapy; I71.2 Thoracic aortic aneurysm, without rupture; I25.2 Old myocardial infarction; J30.2 Other seasonal allergic rhinitis; J34.2 Deviated nasal septum; Z98.890 Other specified postprocedural states; F12.90 Cannabis use, unspecified, uncomplicated; I10 Essential (primary) hypertension; Z20.822 Contact with and (suspected) exposure to COVID-19; E87.6 Hypokalemia; Z71.6 Tobacco abuse counseling; I65.21 Occlusion and stenosis of right carotid artery
CPT/HCPCS: 0241U; 33210; 36415; 71260; 76937; 80048; 80053; 80061; 81001; 83690; 83735; 84443; 84484; 85025; 85610; 93005; 93010; 93246; 93306; 93880; 94760; 96372-59; 96374; 99152; 99153; 99285-25; A9270; C1751; C1769; C1894; G0378; J0360; J1644; J1650; J1940; J2250; J3010; J7040; Q9967

== ENCOUNTER 2022-03-25 20:46 | Inpatient (IN) | payer MEDICARE ==
[~2022-03-25] VITALS: Ht 172.7 cm; Wt 65.9 kg
[~2022-03-25 20:46] MED LIST changes: +ASPI325 PO; +LISI20 PO; +METO25 PO
[2022-03-25 21:04] LABS: BASOPHILS ABSOLUTE AUTO 0.06 K/mm3 (0.00-0.23); BASOPHILS PERCENT AUTO 1 % (0-2); EOSINOPHILS ABSOLUTE AUTO 0.48 K/mm3 (0.00-0.68); EOSINOPHILS PERCENT AUTO 6 % (0-6); Hematocrit 40.7 % (37.0-53.0); Hemoglobin 14.5 g/dL (13.5-17.5); IMMATURE GRAN ABSOLUTE AUTO 0.03 K/mm3 (0.00-0.10); IMMATURE GRAN PERCENT AUTO 0 % (0-1); LYMPHOCYTES ABSOLUTE AUTO 1.81 K/mm3 (0.84-5.20); LYMPHOCYTES PERCENT AUTO 22 % (21-46); MONOCYTES ABSOLUTE AUTO 0.83 K/mm3 (0.16-1.47); MONOCYTES PERCENT AUTO 10 % (4-13); Mean Corpuscular HGB 30.7 pg (26.0-34.0); Mean Corpuscular HGB Conc 35.6 g/dL (31.5-36.5); Mean Corpuscular Volume 86 fL (80-100); Mean Platelet Volume 10.2 fL (9.1-12.4); NEUTROPHILS PERCENT AUTO 61 % (41-73); Platelet Count 221 K/mm3 (150-400); RDW Coefficient Variation 12.8 % (11.7-14.2); RDW Standard Deviation 40.6 fL (35.1-46.3); Red Blood Cell Count 4.73 M/mm3 (4.30-5.90); White Blood Cell Count 8.31 K/mm3 (4.00-11.30)
[2022-03-25 21:31] LABS: Albumin, Blood 3.8 g/dL (3.4-5.0); Albumin/Globulin Ratio 1.3 (0.8-1.8); Bilirubin, Total 0.3 mg/dL (0.1-1.0); Bun/Creatinine Ratio 18.1 (12.0-20.0); Calcium, Blood 8.6 mg/dL (8.5-10.1); Creatinine, Blood 0.83 mg/dL (0.60-1.20); Potassium, Blood 3.7 mmol/L (3.5-5.5); Total Protein, Blood 6.8 g/dL (6.4-8.2)
[2022-03-26 00:14] LABS: Anti-Xa UFH, PHA Monitoring <0.10 IU/mL; International Normalized Ratio 0.97; Prothrombin Time Results 10.2 Sec (9.7-11.5)
[2022-03-26 03:02] LABS: SARS-Cov-2 (COVID-19) PCR, MMC NEGATIVE (NEGATIVE)
[2022-03-26 06:02] LABS: Hematocrit 40.8 % (37.0-53.0); Hemoglobin 14.3 g/dL (13.5-17.5); Mean Corpuscular HGB 30.1 pg (26.0-34.0); Mean Corpuscular Volume 86 fL (80-100); Mean Platelet Volume 10.4 fL (9.1-12.4); Platelet Count 207 K/mm3 (150-400); RDW Coefficient Variation 12.9 % (11.7-14.2); RDW Standard Deviation 40.2 fL (35.1-46.3); Red Blood Cell Count 4.75 M/mm3 (4.30-5.90); White Blood Cell Count 10.14 K/mm3 (4.00-11.30)
[2022-03-26 06:39] LABS: Magnesium, Blood 1.8 mg/dL (1.6-2.4)
[2022-03-26 06:43] LABS: Albumin, Blood 3.8 g/dL (3.4-5.0); Albumin/Globulin Ratio 1.5 (0.8-1.8); Bilirubin, Total 0.4 mg/dL (0.1-1.0); Bun/Creatinine Ratio 16.4 (12.0-20.0); Calcium, Blood 8.7 mg/dL (8.5-10.1); Creatinine, Blood 0.79 mg/dL (0.60-1.20); Globulin, Blood 2.5 g/dL (2.2-4.0); Potassium, Blood 3.7 mmol/L (3.5-5.5); Total Protein, Blood 6.3 g/dL (6.4-8.2)
[2022-03-26] MEDS ORDERED: METO25ER PO (16:45)
--- NOTE | 2022-03-26 18:18 | NUR ---
PT ARRIVAL... PT ARRIVED ON THE UNIT AT 1606, HE IS A&Ox4 AND S/P NSTEMI WITH 2 STENTS PLACED, THE PT IS ON AN AGGROSTAT DRIP AND A NITRO DRIP RUNNING AT 10MCG/ML THE PT IS C/O OF 4/10 CHEST PAIN THAT STARTED TO RADIATE TO HIS JAW AND LEFT SHOULDER. THE PT WAS HYPERTENSIVE WITH SBPs IN THE 200'S AND DBPs IN THE 100'S. THE PT DENIED ANY SOB OR N/V AT THIS TIME. THE PT WAS ON RA WITH O2 SATS >95%. TR BAND IN PLACE TO THE LEFT WRIST, PULSES PALPABLE, CAP REFIL TO THE LEFT FINGERS WAS <3 SECONDS. EKG OBTAINED PER ORDERS. THE NITRO DRIP WAS TITRATED UP FOR CHEST PAIN, THE PT'S BP IMPROVED WITH THE INCREASE IN THE NITRO DRIP. AT 1715 THE PT STARTED TO C/O OF INCREASED SOB, NO CHANGES NOTED TO THE PT'S TELE, L/S CONTINUE TO BE CLEAR AND COARSE IN THE LOWER LOBES WITH A "SMOKER'S COUGH." THE PT WAS PLACED ON 2L NC AND GIVEN 2MG IV MORPHINE. THE PROVIDER WAS NOTIFIED. PROVIDER CAME TO THE BEDSIDE TO ASSESS THE PT, NEW ORDERS WERE PLACED. AT 1740 THE PT MOVED HIMSELF UP IN THE BED, ONCE THE PT SETTLED BACK DOWN THE PT'S HR DROPPED FROM THE 70'S-80'S DOWN TO THE 40'S THEN SUSTAINED IN THE 30'S, THE PT WAS VERY SYMPTOMATIC WITH THIS CHANGE, HE BECAME PALE, NAUSEOUS AND DIAPHORETIC. THE PT WAS LAID FLAT AND GIVEN 1 AMP OF ATROPINE. THE PT'S HR INCREASED FROM THE 30'S TO THE 100'S. THE PT STATED HE "FELT A LITTLE BETTER." THE PT CONTINUES TO C/O OF CHEST PAIN AND SOB. WILL CONTINUE TO MONITOR.
[2022-03-27 04:09] LABS: BASOPHILS ABSOLUTE AUTO 0.06 K/mm3 (0.00-0.23); BASOPHILS PERCENT AUTO 1 % (0-2); EOSINOPHILS ABSOLUTE AUTO 0.11 K/mm3 (0.00-0.68); EOSINOPHILS PERCENT AUTO 1 % (0-6); Hematocrit 38.1 % (37.0-53.0); Hemoglobin 13.4 g/dL (13.5-17.5); IMMATURE GRAN ABSOLUTE AUTO 0.03 K/mm3 (0.00-0.10); IMMATURE GRAN PERCENT AUTO 0 % (0-1); LYMPHOCYTES PERCENT AUTO 15 % (21-46); MONOCYTES ABSOLUTE AUTO 0.91 K/mm3 (0.16-1.47); MONOCYTES PERCENT AUTO 9 % (4-13); Mean Corpuscular HGB 30.4 pg (26.0-34.0); Mean Corpuscular HGB Conc 35.2 g/dL (31.5-36.5); Mean Corpuscular Volume 86 fL (80-100); Mean Platelet Volume 10.5 fL (9.1-12.4); NEUTROPHILS ABSOLUTE AUTO 7.57 K/mm3 (1.96-9.15); NEUTROPHILS PERCENT AUTO 74 % (41-73); Platelet Count 216 K/mm3 (150-400); RDW Coefficient Variation 13.1 % (11.7-14.2); RDW Standard Deviation 41.4 fL (35.1-46.3); Red Blood Cell Count 4.41 M/mm3 (4.30-5.90); White Blood Cell Count 10.18 K/mm3 (4.00-11.30)
[2022-03-27 04:40] LABS: Alanine Aminotransfer (ALT/SGP 28 U/L (12-78); Anion Gap 4 mmol/L (6-16); Aspartate Aminotrans (AST/SGOT 66 U/L (12-37); Blood Urea Nitrogen 11 mg/dL (8-24); CHOL/HDL RATIO 6.9; CO2, Blood 26 mmol/L (21-32); Calcium, Blood 8.8 mg/dL (8.5-10.1); Chloride, Blood 106 mmol/L (98-108); Cholesterol 284 mg/dL (50-200); Creatinine, Blood 0.84 mg/dL (0.60-1.20); Glomerular Filtration Rate 94 (60-); Glucose, Blood 109 mg/dL (70-99); HDL Cholesterol 41 mg/dL (>39); LDL/HDL RATIO 4.8; Low Density Lipoprotein Chol 198 mg/dL (0-110); Potassium, Blood 3.6 mmol/L (3.5-5.5); Sodium, Blood 136 mmol/L (136-145); Triglycerides 226 mg/dL (30-160); Very Low Density Lipoprot Chol 45 mg/dL (6-32)
--- NOTE | 2022-03-27 06:09 | NUR ---
SHIFT SUMMARY NEURO: ALERT AND ORIENTED. FOLLOWS COMMANDS. SLEPT THROUGHOUT SHIFT. RESP: STUFFED UP IN NOSE, UNABLE TO BLOW IT OUT. DRY COUGH. 2LNC OVERNIGHT IT HELPED WITH SOB. CARDIAC: NTG GTT RUNNING AT 10. ATTEMPTED TO WEAN BUT PATIENT COMPLAINED OF CHEST PAIN. SOB WITH EXERTION. TR BAND REMOVED AT 2330. SMALL HEMATOMA NOTED ABOVE SITE. COMPRESSION APPLIED, EXTREMITY ELEVATED, AND ICE APPLIED. UPON RECHECK, SITE IMPROVING. COMPLAINT OF TENDERNESS AT SITE. BP LABILE. 170'S AFTER ACTIVITY TO 120'S WHILE SLEEPING. HEART RATE 60'S-90'S SINUS RHYTHM. GI: VOIDED IN URINAL WITHOUT DIFFICULTY : NO BM THIS SHIFT. TOLERATING FLUIDS WELL. SKIN: SCATTERED BRUISING OVER BODY. PALE SKIN. LEFT RADIAL SITE WITH PRESSURE DRESSING. OTHER: CRITICAL TROPONIN THIS AM 5800. NOTIFIED DR. HERNANDEZ. NO FURTHER ORDERS AT THIS TIME.
--- NOTE | 2022-03-27 11:00 | NUR ---
[place] of Care: Care assumed at 0700hr. Patient alert and oriented x4, sitting upright in bed. Denies pain, discomfort SOB or dyspnea. VSS, SpO2-96-98% on RA. Aggrastat gtt infusing at shift change but stopped at 0945hr per MD orders. Nitro gtt at 5mcg/min at shift change, bp stable with systolic in the 130's, therefore Nitro gtt placed on stand-by at approx 1000hr. Bp then increased to 150's, and nitro gtt re-started at 5mcg/min. Target systolic of less than [address] Grijalva. Rt radial access site shows some bruising but no s/s of bleeding/hematoma. Rt arm-board in place. Voiding using urinal without difficulty. Calm and cooperative with staff. Call light in reach, makes needs known. Will continue to monitor.
--- NOTE | 2022-03-27 18:48 | NUR ---
Shift Summary: No significant changes throughout shift. Continues to deny chest pain/discomfort, SOB or dyspnea. Up to BSC without difficulty. Tolerating PO meals, fluids, and medications without difficulty. Voiding using urinal and/or BSC without difficulty. VS throughout shift, nitro gtt 10-20mcg/min to target systolic BP of 140. Call placed to Dr. Grijalva this evening to inform her that patient remained on nitro gtt. Instructed to continue current medication regimen and continue to use nitro gtt to target systolic BP of 140. Medications changes likely made tomorrow morning if patient continues to require nitro gtt. Will continue to monitor until report to NOC shift RN.
--- NOTE | 2022-03-27 20:53 | NUR ---
ASSUMED CARE. AOX3, WAS UP TO THE COMMODE, INDEPENDENT. SMALL FORMED STOOL NOTED, URINE CLEAR YELLOW. DENIED ANY DIZZINESS, CHEST PAIN, OR SOB. SBP 140'S WITH NITRO GTT AT 10, THIS WAS JUST PLACED ON STAND BY BP DROPPED TO 120-130'S AND PM MEDS WERE GIVEN. SINUS ON MONIOTR WITH RATE 70'S. LS CLEAR, DIM IN BASES, COUGH PRODUCTIVE WITH GREEN SPUTUM, STATES IT STARTED AFTER ADMIT. NO EDEMA. DENIES ANY NEEDS AT THIS TIME. CALL LIGHT IS IN REACH.
--- NOTE | 2022-03-27 21:43 | NUR ---
BLOOD PRESSURE STARTED TO CLIMB BACK UP AFTER ONLY BEING OFF FOR ESTIMATED 30 MIN. RESTARTED NITRO AT 9MCQ.
--- NOTE | 2022-03-28 00:16 | NUR ---
JESSIE REPORTS FEELING ANXIOUS, SOB, SLIGHTLY RESTLESS IN BED. STATES HE FEELS LIKE HE CAN'T SLEEP. VERBALIZES FRUSTRATION WITH STARTING NEW PILLS. STATES THIS OCCURRED LAST NIGHT WELL. EVEN VERBALIZED HE WILL NOT TAKE THE MEDS IF THIS IS WHAT HE FEELS LIKE. BLOOD PRESSURE IS ELEVATED. HAD TO INCREASE NITRO. SPOKE TO MD AND GOT ORDER FOR MELATONIN TO HELP HIM SLEEP.
[2022-03-28 03:34] LABS: BASOPHILS ABSOLUTE AUTO 0.04 K/mm3 (0.00-0.23); BASOPHILS PERCENT AUTO 0 % (0-2); EOSINOPHILS ABSOLUTE AUTO 0.39 K/mm3 (0.00-0.68); EOSINOPHILS PERCENT AUTO 4 % (0-6); Hematocrit 40.4 % (37.0-53.0); IMMATURE GRAN ABSOLUTE AUTO 0.03 K/mm3 (0.00-0.10); IMMATURE GRAN PERCENT AUTO 0 % (0-1); LYMPHOCYTES ABSOLUTE AUTO 1.76 K/mm3 (0.84-5.20); LYMPHOCYTES PERCENT AUTO 16 % (21-46); MONOCYTES ABSOLUTE AUTO 1.09 K/mm3 (0.16-1.47); MONOCYTES PERCENT AUTO 10 % (4-13); Mean Corpuscular HGB 29.7 pg (26.0-34.0); Mean Corpuscular HGB Conc 34.7 g/dL (31.5-36.5); Mean Corpuscular Volume 86 fL (80-100); Mean Platelet Volume 10.4 fL (9.1-12.4); NEUTROPHILS PERCENT AUTO 69 % (41-73); Platelet Count 210 K/mm3 (150-400); RDW Coefficient Variation 12.6 % (11.7-14.2); RDW Standard Deviation 39.4 fL (35.1-46.3); Red Blood Cell Count 4.72 M/mm3 (4.30-5.90); White Blood Cell Count 10.71 K/mm3 (4.00-11.30)
[2022-03-28 04:04] LABS: Bun/Creatinine Ratio 16.7 (12.0-20.0); Creatinine, Blood 0.78 mg/dL (0.60-1.20); Potassium, Blood 3.5 mmol/L (3.5-5.5)
--- NOTE | 2022-03-28 05:23 | NUR ---
SHIFT SUMMARY: NO SIGNIFICANT CHANGES THIS SHIFT. ABLE TO GET UP TO BSC INDEPENDENTLY. REPORTED DYSPNES, ANXIETY, RESTLESSNESS AFTER PO MEDS. STATES IT OCCURRED THE PREVIOUS NIGHT AFTER TAKING THE NEW MEDS WELL. GOT VERY AGGITATED THAT HE COULD NOT SLEEP. GOT ORDER FOR MELATONIN 10MG AT WHICH HE WAS ABLE TO SLEEP AND ANXIETY RESOLVED. LS DIM IN BASES, COUGH IS PRODUCTIVE AND GREEN PER PATIENT, THIS RN NEVER SAW SECRETIONS. HAS REMAINED IN SINUS RYTHEM WITH OCCATIONAL TACHYCARDIA UP TO 110'S. NITRO GTT HAS BEEN 9-11MCQ/MIN TO MAINTAIN SBP<140'S. NO CHANGES ON THIS AM EKG FROM PREVIOUS. TROPONIN TRENDING DOWN SLIGHTLY NOW 6272. NO OTHER CHANGES TO NOTE. CALL LIGHT REMAINS IN REACH.
--- NOTE | 2022-03-28 07:30 | NUR ---
INITIAL ASSESSMENT: Patient is resting with his eyes closed on his right side. He awakens easily to verbal stimuli. He is oriented x4. He reports 2/10 chest pressure, he states this has been "going on off and on for a while." He also C/O minimal "body aches" from not moving. HR, ST in the low 100s. BP 107/64-Nitro gtt placed in standby.AM meds given at this time-increased dose of Entresto given along with home dose of Metoprolol. LS DIM T/O, biox 98% on RA-pt states he is coughing up green sputum. BT+, he had 3 bowel movements during the night, he would still like his stool softners. Pt denies diarrhea. PPP. He has small dressing to his right ear, he states he scratched it with his nails on accident. Opsite dressing to right radial site-CDI, some bruising noted from prior hematoma. Patient assisted to get OOB to the chair for breakfast. He denies other needs at this time. Call light in reach.
--- NOTE | 2022-03-28 12:30 | NUR ---
UPDATE: Patient has been OOB to chair. Blood pressure is starting to trend up, SBP in the 160s. Dr. Rand contacted prior to starting the nitro gtt again. Nitro gtt restarted at 5 mcg/min
--- NOTE | 2022-03-28 16:30 | NUR ---
Update: Blood pressure continues to trend up, titrating Nitro gtt per goal of SBP less than 140. Dr. Rand called to check on the patient. She ordered an extra dose of 25 mg Metoprolol tartrate. She wants to wait to assess how the patient will tolerate it and she may increase his AM dose to 50 mg instead of 25. Assessment is unchanged, pt denies CP or SOB he has been OOB to the BSC several times. Patient denies other needs at this time. Call light in reach.
--- NOTE | 2022-03-28 18:09 | NUR ---
Summary: Patient has been alert and oriented t/o the shift. Some generalized weakness noted, he was OOB to the chair for meals. HR has been sinus to sinus tach this shift with a rate in the 90s-115, with activity his heart rate would get up into the 130s. SBP was great this morning, I was able to put the gtt in standby until about 12, I have been titrating it up T/O the afternoon he is currently running at 25mcg. He had an extra dose of Metoprolol Tartrate this afternoon, Dr. Rand wants to see how the patient tolerates the increase and she may change his basal dose in the AM. He had minimal C/O chest pain at the beginning of the shift he rated this at a 2/10 and stated he has been having it intermittently during his stay. LS DIM T/O, his biox has been above 95% on RA. He has been having a PC with green sputum-he recently quit smoking. BT+, he got his stool softner this AM per request and has been having loose stool T/O the shift. He has had two doses of Lasix this shift putting out around 1500 cc urine this shift. His right radial site with opsite some bruising noted from prior hematoma. No other changes this shift. Will report to oncoming RN.
--- NOTE | 2022-03-28 20:00 | NUR ---
ASSUMED CARE AFTER BEDSIDE REPORT, NTG GTT WAS TITRATED TO 20MCG/MIN. PT ALERT, DENIES CHEST PAIN OR SOB. PT NOTED W POSITIVE MOOD & DENIES QUESTIONS RE PLAN OF CARE. ON RA, IN NSR, BP STABLE. L RADIAL SITE W OPSITE DRSG, SL BRUISING, BUT OTHERWISE CLEAR. UP IN ROOM INDEPENDANTLY, USES URINAL AND BSC. PT ASKS FOR "SPONGE BATH", AND WILL PROVIDE. CALL LIGHT IN REACH, WILL CONT TO MONITOR.
--- NOTE | 2022-03-29 00:33 | NUR ---
NTG WAS TITRATED TO 10MCG/MIN FOR BP. BED BATH WAS GIVEN & PT MED W MELATONIN PER REQUEST WITH HS MEDS. CONT TO DENY COMPLAINTS. SM LOOSE STOOL NOTED BSC. CONT NSR. ENC REST, CALL LIGHT IN REACH.
--- NOTE | 2022-03-29 05:30 | NUR ---
PT SEEMS TO BE SLEEPING WELL, UP TO BSC INDEPENDENTLY & BACK TO BED. NTG GTT CONT 10MCG/KG. CONT NSR, VSS.
[2022-03-29 06:22] LABS: Calcium, Blood 8.6 mg/dL (8.5-10.1); Potassium, Blood 4.1 mmol/L (3.5-5.5)
--- NOTE | 2022-03-29 06:30 | NUR ---
CONT SLEEPING, NO CHANGES IN STATUS, BP NOTED TO BE TRENDING UP SL, WILL TITRATE NTG IF INDICATED. CALL LIGHT IN REACH, REPORT TO DAYSHIFT.
--- NOTE | 2022-03-29 09:00 | NUR ---
ASSUMPTION OF CARE RECEIVED REPORT FROM PERRY VELOZ AT 0715, ASSUMED CARE OF PATIENT. PATIENT A/O, DR. HERNANDEZ TO ROOM REVIEWING PLAN OF CARE. EDUCATED PATIENT REGARDING MEDICATION CHANGES. PATIENT VERBALIZED UNDERSTANDING. VITALS STABLE ON ROOM AIR AND NITRO GTT INFUSING. EDUCATED PATIENT REGARDING FLUID RESTRICTION OF 2L/DAY. PATIENT VERBALIZED UNDERSTANDING. PATIENT AMBULATED INDEPENDENTLY TO COMMODE WITH STEADY GAIT, DENIED DISCOMFORTS WHILE AMBULATING. PATIENT'S ARRIVED TO ROOM AT 0830 ASKING WHERE SHE NEEDED TO CUFF MATCHER PATIENT'S NEW PRESCRIPTION. EDUCATED THAT MEDICATION HAD BEEN CALLED INTO [facility]. SAID SHE WOULD CALL A FRIEND TO PICK THE MEDICATION UP. ORDERS REVIEWED, WILL TREAT PRESCRIBED. CALL LIGHT IN REACH.
--- NOTE | 2022-03-29 15:33 | NUR ---
PAIN PATIENT WITH REPORTS OF MIDSTERNAL PAIN, STATED MILD ACHE. PAIN INCREASED WHEN TOUCHED. VITALS REMAIN STABLE WITH NO ACUTE CHANGES. EKG PERFORMED WITH NO ACUTE CHANGES COMPARED TO PREVIOUS. DR. HERNANDEZ NOTIFIED VIA T/P AND REPORTED PATIENT'S SYMPTOMS AND THAT PAIN INCREASED WITH TOUCH. NO NEW ORDERS RECEIVED, WILL MONITOR FOR CHANGES WITH PAIN.
--- NOTE | 2022-03-29 18:26 | NUR ---
SHIFT SUMMARY PATIENT A/O THROUGH SHIFT. MEDICATION CHANGES MADE BY DR. HERNANDEZ IN AM, MEDICATED PRESCRIBED. NITRO GTT STOPPED CHARTED AND CONTINUES TO REMAIN OFF. [place] DISCONTINUED AND EFFIENT RECEIVED FROM FAMILY. FIRST DOSE GIVEN ORDERED WITH NEXT DOSE IN AM. PATIENT AMBULATES INDEPENDENTLY IN ROOM WITH STEADY GAIT. PAIN REPORTED IN STERNUM WITH NO ACUTE CONCERNS AT THIS TIME. EDUCATED PATIENT TO NOTIFY RN IF PAIN WORSENS, OR CHANGES LOCATIONS. PATIENT VERBALIZED UNDERSTANDING. FAMILY CURRENTLY TO BEDSIDE, CALL LIGHT IN REACH.
--- NOTE | 2022-03-29 19:40 | NUR ---
ASSUMPTION OF CARE BEDSIDE REPORT GIVEN FROM DAYSHIFT NURSE WITH PATIENT. PT APPEARS COMFORTABLE IN BED CONVERSING [facility] FAMILY. BLOOD PRESSURE IS A LITTLE ELVATED BUT PATIENT IS EXCITED TO SEE FAMILY. WILL MONITOR THIS CLOSEY AND ADDRESS THIS IF IT DOES NOT RESOLVE. NO ACUTE DISTRESS NOTED. PT ON RA. UP AD EUGENE. PCI SITE TO LEFT RADIAL SITE IS BRUISED BUT DRESSING IS CDI. PT VOIDING. EDUCATED ABOUT FLUID RESTRICITION AND BALANCE FROM AM SHIFT NOTED.
--- NOTE | 2022-03-29 20:15 | NUR ---
ASSUMED CARE OF PT. REPORT RECEIVED FROM MAGDIEL NAGY. PT IS AO X3/3, DENIES PAIN, PRESSURE, SOB. L RADIAL SITE HAS SMALL HEMATOMA, STABLE. AGREE WITH PREVIOUS ASSESSMENT. REVIEWED POC AND CALL LIGHT WITH PT. WILL CONTINUE TO MONITOR.
--- NOTE | 2022-03-29 20:30 | NUR ---
CHANGE OF ASSIGNMENT REPORT GIVEN AT THE BEDSIDE WITH MAGDIEL SCHROEDER. PT NOTED TO BE PLEASANT AND RECEPTIVE TO CHANGE IN CARE. VSS.BP NORMALIZED, BUT HAS NEW MEDS DUE IT IS BORDERLINE HIGH COMPARED TO DESIRE SBP GOAL OF 140 OR LESS. THIS WAS PASSED ON TO MAGDIEL SCHROEDER. PT WILL BE MONITORED OVERNIGHT IN ICU.
--- NOTE | 2022-03-30 02:00 | NUR ---
PT CALLS BECAUSE HIS IV NEEDS TO BE TAPED DOWN. HE STATES HE HAS ONLY SLEPT FOR ABOUT 1 HOUR, ATTRIBUTES THAT TO THE COFFEE HE HAD EARLIER IN THE EVENING. OFFERED WARM BLANKET FOR COMFORT. NO OTHER NEEDS AT PRESENT.
[2022-03-30 05:52] LABS: BASOPHILS ABSOLUTE AUTO 0.06 K/mm3 (0.00-0.23); BASOPHILS PERCENT AUTO 1 % (0-2); EOSINOPHILS ABSOLUTE AUTO 0.49 K/mm3 (0.00-0.68); EOSINOPHILS PERCENT AUTO 5 % (0-6); Hematocrit 41.7 % (37.0-53.0); Hemoglobin 14.7 g/dL (13.5-17.5); IMMATURE GRAN ABSOLUTE AUTO 0.03 K/mm3 (0.00-0.10); IMMATURE GRAN PERCENT AUTO 0 % (0-1); LYMPHOCYTES ABSOLUTE AUTO 1.61 K/mm3 (0.84-5.20); LYMPHOCYTES PERCENT AUTO 18 % (21-46); MONOCYTES PERCENT AUTO 9 % (4-13); Mean Corpuscular HGB Conc 35.3 g/dL (31.5-36.5); Mean Corpuscular Volume 85 fL (80-100); Mean Platelet Volume 10.6 fL (9.1-12.4); NEUTROPHILS ABSOLUTE AUTO 6.07 K/mm3 (1.96-9.15); NEUTROPHILS PERCENT AUTO 67 % (41-73); Platelet Count 217 K/mm3 (150-400); RDW Coefficient Variation 12.6 % (11.7-14.2); RDW Standard Deviation 39.3 fL (35.1-46.3); White Blood Cell Count 9.06 K/mm3 (4.00-11.30)
[2022-03-30 06:14] LABS: Bun/Creatinine Ratio 23.2 (12.0-20.0); Calcium, Blood 8.9 mg/dL (8.5-10.1); Creatinine, Blood 0.86 mg/dL (0.60-1.20); Potassium, Blood 4.4 mmol/L (3.5-5.5)
--- NOTE | 2022-03-30 06:38 | NUR ---
NO ACUTE CHANGES OVENIGHT. PT'S VS REMAIN WNL OFF NITRO GTT SINCE YESTERDAY AND NO EPISODES OF CHEST PAIN, PRESSURE OR SOB. PT HAS A FEW EPISODES OF LOOSE STOOLS OVERNIGHT, SO HE DECLINES STOOL SOFTENER. HE SLEPT WELL FOR APPROX 5.[address] HERNANDEZ IN THIS MORNING, PLANS DC HOME TODAY, DISCUSSED POC WITH PT AND REVIEWED MEDICATIONS. SHE REQUESTS AM MEDICATIONS BE GIVEN NOW. WILL CONTINUE TO MONITOR AND REPORT TO ONCOMING SHIFT.
--- NOTE | 2022-03-30 08:44 | NUR ---
ASSUMPTION OF CARE RECEIVED REPORT FROM ALEXANDRE VELOZ AT 0710, ASSUMED CARE OF PATIENT. PATIENT LAYING ON RIGHT SIDE, EASILY AWOKE. ORIENTED TO SITUATION. PATIENT WITH SBP READING IN 80'S WHILE LAYING ON SIDE WITH LEFT ARM ELEVATED. RECHECK OF BLOOD PRESSURE WAS STABLE. MAP MAINTAINED ABOVE 65 WITH SBP BELOW 140. PATIENT UP TO COMMODE INDEPENDENTLY, STATED HE LOOKED AT MONITOR AND SAW BLOOD PRESSURE READING AND FELT DIZZY. PATIENT WITH STEADY GAIT, STAFF STANDBY TO ASSIST TO CHAIR. VITALS REMAINED STABLE WITH ACTIVITY. PATIENT CALLED AT 0840 WHILE SITTING UP IN CHAIR STATING HE THOUGHT HE FELT DIZZY AGAIN. VITALS STABLE, B/P STABE AT 119/84 MAP OF 96. PATIENT SAID IT WAS EFFECTING HIS BREATHING, HOWEVER, DENIED SOB, RR BELOW 20 AND SP02 ABOVE 95% ON ROOM AIR. PATIENT EATING BREAKFAST WITH NO S/S OF DISTRESS. REVIEWED B/P GOALS WITH PATIENT AND MEDICATION CHANGES. PATIENT SAID MAYBE THE MONITOR WAS NOT WORKING RIGHT. BLOOD PRESSURE RECHECKED WITH B/P READING REMAINING STABLE. EDUCATED REGARDING HOW MONITOR WORKS AND WILL CONTINUE WITH FREQUENT B/P CHECKS. PATIENT VERBALIZED UNDERSTANDING. PATIENT SAID THE FEELING WENT AWAY. ENCOURAGED PATIENT TO CONTINUE BREAKFAST AND DRINK FLUIDS PROVIDED WHILE MAINTAINING ORDERED FLUID RESTRICTION.
--- NOTE | 2022-03-30 10:21 | NUR ---
UPDATE DR. BUENO TO ROOM AT 0930, REPORTED PATIENT'S B/P AND PATIENT REPORTED HIS EPISODE OF DIZZINESS. PATIENT REPORTED DRY COUGH THAT HAS BEEN ONGOING FOR SEVERAL DAYS. VITALS REMAINED STABLE. NO CHANGES TO MEDICATIONS AT THIS TIME. RECEIVED ORDERS FOR CHEST XR, CANCELLED DISCHARGE AND CHANGED INPATIENT STATUS. PATIENT EDUCATED ON CURRENT PLAN, VERBALIZED UNDERSTANDING.
[2022-03-30] MEDS ORDERED: ASPI81CH PO (17:20)
[2022-03-30] MEDS ORDERED: METO50ER PO (17:21)
[2022-03-30] MEDS ORDERED: EZET10 PO (17:21)
[2022-03-30] MEDS ORDERED: METO25ER PO (17:22)
[2022-03-30] MEDS ORDERED: EFFIENT10 MG PO (17:24)
[2022-03-30] MEDS ORDERED: ENTRESTO 97 MG1 EACH PO (17:24)
--- NOTE | 2022-03-30 18:15 | NUR ---
DISCHARGE PATIENT DISCHARGED TO HOME PER DR. MARIN'S ORDERS. PATIENT DENIED DISCOMFORTS AND VITALS WERE STABLE. PIV REMOVED FROM RFA WITH CATHETER INTACT. PRESCRIPTIONS FAXED TO [employer], CALLED PHARMACY TO CONFIRM RECEIVAL WITH VERIFICATION. DISCHARGE INSTRUCTIONS GIVEN TO PATIENT WITH HOME MEDICATION. PATIENT LEFT ASSISTED BY STAFF VIA WHEELCHAIR WITH FAMILY PROVIDING RIDE HOME.
== END 2022-03-30 18:04 | disposition home or self-care (01) | DRG 246 ==
LOC: ER 20:46 → ICUW 23:12 → ERHOLD 23:12 → ICUW 03-26 16:29
PROVIDERS: Emergency Medicine; Internal Medicine Cardiovascular Disease; Nurse Practitioner Acute Care; ADMIT Family Medicine
PROC: 027135Z Dilation of Coronary Artery, Two Arteries with Two Drug-eluting Intraluminal Devices, Percutaneous Approach (ICD-10-PCS; principal; 2022-03-26)
PROC: 4A023N7 Measurement of Cardiac Sampling and Pressure, Left Heart, Percutaneous Approach (ICD-10-PCS; 2022-03-26)
PROC: B2111ZZ Fluoroscopy of Multiple Coronary Arteries using Low Osmolar Contrast (ICD-10-PCS; 2022-03-26)
PROC: B2181ZZ Fluoroscopy of Left Internal Mammary Bypass Graft using Low Osmolar Contrast (ICD-10-PCS; 2022-03-26)
PROC: B51V1ZA Fluoroscopy of Other Veins using Low Osmolar Contrast, Guidance (ICD-10-PCS; 2022-03-26)
DX: I21.4 Non-ST elevation (NSTEMI) myocardial infarction (principal); I46.9 Cardiac arrest, cause unspecified; I50.43 Acute on chronic combined systolic (congestive) and diastolic (congestive) heart failure; I24.9 Acute ischemic heart disease, unspecified; C61 Malignant neoplasm of prostate; I71.2 Thoracic aortic aneurysm, without rupture; J44.9 Chronic obstructive pulmonary disease, unspecified; I10 Essential (primary) hypertension; I25.5 Ischemic cardiomyopathy; I73.9 Peripheral vascular disease, unspecified; F17.210 Nicotine dependence, cigarettes, uncomplicated; I25.10 Atherosclerotic heart disease of native coronary artery without angina pectoris; Z95.1 Presence of aortocoronary bypass graft; Z95.5 Presence of coronary angioplasty implant and graft; I70.8 Atherosclerosis of other arteries; I65.21 Occlusion and stenosis of right carotid artery; I11.0 Hypertensive heart disease with heart failure; E78.00 Pure hypercholesterolemia, unspecified; T46.6X5A Adverse effect of antihyperlipidemic and antiarteriosclerotic drugs, initial encounter; J32.9 Chronic sinusitis, unspecified; I16.0 Hypertensive urgency; J30.2 Other seasonal allergic rhinitis; E87.6 Hypokalemia; K40.90 Unilateral inguinal hernia, without obstruction or gangrene, not specified as recurrent; Z20.822 Contact with and (suspected) exposure to COVID-19; Z88.2 Allergy status to sulfonamides; Z88.0 Allergy status to penicillin; Z79.811 Long term (current) use of aromatase inhibitors; Z79.82 Long term (current) use of aspirin; Z79.899 Other long term (current) drug therapy; I25.2 Old myocardial infarction; Z87.19 Personal history of other diseases of the digestive system; Z98.890 Other specified postprocedural states
CPT/HCPCS: 36415; 71045; 71046; 76937; 80048; 80053; 80061; 83735; 84450; 84460; 84484; 85025; 85027; 85347; 85520; 85610; 92937; 93005; 93010; 93306; 93455; 99152; 99153; 99291-25; A9270; C1725; C1769; C1874; C1884; C1887; C1894; J0153; J0461; J1644; J1940; J2250; J2270; J3010; J3246; J7030; J7040; Q9967; U0004

== ENCOUNTER 2022-04-07 21:54 | Emergency (ER) | payer MEDICARE ==
[~2022-04-07] VITALS: Ht 172.7 cm; Wt 68.0 kg
[~2022-04-07 21:54] MED LIST changes: +ASPI81CH PO; +EFFIENT10 MG PO; +ENTRESTO 97 MG1 EACH PO; +EZET10 PO; +METO25ER PO; +METO50ER PO
[2022-04-07 22:54] LABS: BASOPHILS ABSOLUTE AUTO 0.07 K/mm3 (0.00-0.23); BASOPHILS PERCENT AUTO 1 % (0-2); EOSINOPHILS ABSOLUTE AUTO 0.46 K/mm3 (0.00-0.68); EOSINOPHILS PERCENT AUTO 5 % (0-6); Hematocrit 37.4 % (37.0-53.0); Hemoglobin 13.2 g/dL (13.5-17.5); IMMATURE GRAN ABSOLUTE AUTO 0.03 K/mm3 (0.00-0.10); IMMATURE GRAN PERCENT AUTO 0 % (0-1); LYMPHOCYTES ABSOLUTE AUTO 1.83 K/mm3 (0.84-5.20); LYMPHOCYTES PERCENT AUTO 19 % (21-46); MONOCYTES ABSOLUTE AUTO 1.11 K/mm3 (0.16-1.47); MONOCYTES PERCENT AUTO 12 % (4-13); Mean Corpuscular HGB 30.8 pg (26.0-34.0); Mean Corpuscular HGB Conc 35.3 g/dL (31.5-36.5); Mean Corpuscular Volume 87 fL (80-100); Mean Platelet Volume 10.3 fL (9.1-12.4); NEUTROPHILS ABSOLUTE AUTO 5.92 K/mm3 (1.96-9.15); NEUTROPHILS PERCENT AUTO 63 % (41-73); Platelet Count 263 K/mm3 (150-400); RDW Coefficient Variation 12.5 % (11.7-14.2); RDW Standard Deviation 40.1 fL (35.1-46.3); Red Blood Cell Count 4.29 M/mm3 (4.30-5.90); White Blood Cell Count 9.42 K/mm3 (4.00-11.30)
[2022-04-07 23:12] LABS: Albumin, Blood 3.7 g/dL (3.4-5.0); Albumin/Globulin Ratio 1.1 (0.8-1.8); Bilirubin, Total 0.3 mg/dL (0.1-1.0); Bun/Creatinine Ratio 20.9 (12.0-20.0); Calcium, Blood 8.9 mg/dL (8.5-10.1); Creatinine, Blood 0.86 mg/dL (0.60-1.20); Globulin, Blood 3.3 g/dL (2.2-4.0); Potassium, Blood 4.1 mmol/L (3.5-5.5)
== END 2022-04-08 01:57 | disposition home or self-care (01) ==
LOC: ER 21:54
PROVIDERS: Emergency Medicine
DX: I10 Essential (primary) hypertension (principal); R06.00 Dyspnea, unspecified; I25.10 Atherosclerotic heart disease of native coronary artery without angina pectoris; I25.2 Old myocardial infarction; F17.210 Nicotine dependence, cigarettes, uncomplicated; Z88.0 Allergy status to penicillin; Z88.2 Allergy status to sulfonamides; Z79.82 Long term (current) use of aspirin; Z79.899 Other long term (current) drug therapy; Z95.1 Presence of aortocoronary bypass graft
CPT/HCPCS: 36415; 71046; 80053; 83690; 83880; 84484; 85025; 93005; 93010; A9270

== ENCOUNTER 2022-05-03 19:33 | Emergency (ER) | payer MEDICARE, OTHER ==
[~2022-05-03] VITALS: Ht 172.7 cm; Wt 68.0 kg
[2022-05-03 19:54] LABS: BASOPHILS ABSOLUTE AUTO 0.07 K/mm3 (0.00-0.23); BASOPHILS PERCENT AUTO 1 % (0-2); EOSINOPHILS ABSOLUTE AUTO 0.73 K/mm3 (0.00-0.68); EOSINOPHILS PERCENT AUTO 10 % (0-6); Hematocrit 38.2 % (37.0-53.0); Hemoglobin 13.5 g/dL (13.5-17.5); IMMATURE GRAN ABSOLUTE AUTO 0.02 K/mm3 (0.00-0.10); IMMATURE GRAN PERCENT AUTO 0 % (0-1); LYMPHOCYTES ABSOLUTE AUTO 1.66 K/mm3 (0.84-5.20); LYMPHOCYTES PERCENT AUTO 22 % (21-46); MONOCYTES ABSOLUTE AUTO 0.72 K/mm3 (0.16-1.47); MONOCYTES PERCENT AUTO 10 % (4-13); Mean Corpuscular HGB 30.4 pg (26.0-34.0); Mean Corpuscular HGB Conc 35.3 g/dL (31.5-36.5); Mean Corpuscular Volume 86 fL (80-100); Mean Platelet Volume 9.8 fL (9.1-12.4); NEUTROPHILS ABSOLUTE AUTO 4.39 K/mm3 (1.96-9.15); NEUTROPHILS PERCENT AUTO 58 % (41-73); Platelet Count 215 K/mm3 (150-400); RDW Coefficient Variation 12.7 % (11.7-14.2); RDW Standard Deviation 39.9 fL (35.1-46.3); Red Blood Cell Count 4.44 M/mm3 (4.30-5.90); White Blood Cell Count 7.59 K/mm3 (4.00-11.30)
[2022-05-03 20:15] LABS: Albumin, Blood 3.7 g/dL (3.4-5.0); Albumin/Globulin Ratio 1.2 (0.8-1.8); Bilirubin, Total 0.3 mg/dL (0.1-1.0); Bun/Creatinine Ratio 17.5 (12.0-20.0); Calcium, Blood 8.8 mg/dL (8.5-10.1); Creatinine, Blood 1.03 mg/dL (0.60-1.20); Potassium, Blood 3.9 mmol/L (3.5-5.5); Total Protein, Blood 6.7 g/dL (6.4-8.2)
[2022-05-04] MEDS ORDERED: LISI20 PO (00:17)
== END 2022-05-04 01:27 | disposition home or self-care (01) ==
LOC: ER 19:33
PROVIDERS: Physician Assistant
DX: I10 Essential (primary) hypertension (principal); R06.02 Shortness of breath; I25.10 Atherosclerotic heart disease of native coronary artery without angina pectoris; I25.2 Old myocardial infarction; E78.5 Hyperlipidemia, unspecified; Z95.1 Presence of aortocoronary bypass graft; F17.210 Nicotine dependence, cigarettes, uncomplicated; Z88.0 Allergy status to penicillin; Z88.2 Allergy status to sulfonamides; Z79.899 Other long term (current) drug therapy; Z79.82 Long term (current) use of aspirin
CPT/HCPCS: 36415; 71045; 80053; 84484; 85025; 93005; 93010; 99284-25; A9270

== ENCOUNTER → 2022-06-20 | Outpatient (CLI) | payer MEDICARE ==
[2022-06-20 19:13] LABS: BASOPHILS ABSOLUTE AUTO 0.07 K/mm3 (0.00-0.23); BASOPHILS PERCENT AUTO 1 % (0-2); EOSINOPHILS ABSOLUTE AUTO 0.34 K/mm3 (0.00-0.68); EOSINOPHILS PERCENT AUTO 4 % (0-6); Hematocrit 40.2 % (37.0-53.0); Hemoglobin 14.3 g/dL (13.5-17.5); IMMATURE GRAN ABSOLUTE AUTO 0.03 K/mm3 (0.00-0.10); IMMATURE GRAN PERCENT AUTO 0 % (0-1); LYMPHOCYTES ABSOLUTE AUTO 1.58 K/mm3 (0.84-5.20); LYMPHOCYTES PERCENT AUTO 17 % (21-46); MONOCYTES ABSOLUTE AUTO 0.92 K/mm3 (0.16-1.47); MONOCYTES PERCENT AUTO 10 % (4-13); Mean Corpuscular HGB 30.8 pg (26.0-34.0); Mean Corpuscular HGB Conc 35.6 g/dL (31.5-36.5); Mean Corpuscular Volume 87 fL (80-100); Mean Platelet Volume 9.9 fL (9.1-12.4); NEUTROPHILS ABSOLUTE AUTO 6.13 K/mm3 (1.96-9.15); NEUTROPHILS PERCENT AUTO 68 % (41-73); Platelet Count 216 K/mm3 (150-400); RDW Coefficient Variation 12.5 % (11.7-14.2); RDW Standard Deviation 39.2 fL (35.1-46.3); Red Blood Cell Count 4.65 M/mm3 (4.30-5.90); White Blood Cell Count 9.07 K/mm3 (4.00-11.30)
[2022-06-20 19:17] LABS: Bun/Creatinine Ratio 14.4 (12.0-20.0); Calcium, Blood 9.2 mg/dL (8.5-10.1); Creatinine, Blood 0.97 mg/dL (0.60-1.20); Potassium, Blood 4.1 mmol/L (3.5-5.5)
== END | disposition home or self-care (01) ==
LOC: LAB 19:03 → LAB SHORT 19:03
PROVIDERS: Physician Assistant Medical
DX: R10.2 Pelvic and perineal pain (principal)
CPT/HCPCS: 80048; 85025; 87086

== ENCOUNTER 2022-09-18 19:22 | Observation (INO) | payer MEDICARE ==
[~2022-09-18] VITALS: Ht 172.7 cm; Wt 75.0 kg
[2022-09-18] MEDS ORDERED: NITROGLYCERIN0.4 M3 (19:53)
[2022-09-18] MEDS ORDERED: ASPI325 PO (19:54)
[2022-09-18 20:53] LABS: BASOPHILS ABSOLUTE AUTO 0.07 K/mm3 (0.00-0.23); BASOPHILS PERCENT AUTO 1 % (0-2); EOSINOPHILS ABSOLUTE AUTO 0.46 K/mm3 (0.00-0.68); EOSINOPHILS PERCENT AUTO 6 % (0-6); Hematocrit 38.6 % (37.0-53.0); Hemoglobin 13.6 g/dL (13.5-17.5); IMMATURE GRAN ABSOLUTE AUTO 0.01 K/mm3 (0.00-0.10); IMMATURE GRAN PERCENT AUTO 0 % (0-1); LYMPHOCYTES ABSOLUTE AUTO 2.31 K/mm3 (0.84-5.20); LYMPHOCYTES PERCENT AUTO 29 % (21-46); MONOCYTES ABSOLUTE AUTO 0.79 K/mm3 (0.16-1.47); MONOCYTES PERCENT AUTO 10 % (4-13); Mean Corpuscular HGB Conc 35.2 g/dL (31.5-36.5); Mean Corpuscular Volume 85 fL (80-100); Mean Platelet Volume 10.6 fL (9.1-12.4); NEUTROPHILS ABSOLUTE AUTO 4.36 K/mm3 (1.96-9.15); NEUTROPHILS PERCENT AUTO 54 % (41-73); Platelet Count 212 K/mm3 (150-400); RDW Coefficient Variation 12.7 % (11.7-14.2); RDW Standard Deviation 38.8 fL (35.1-46.3); Red Blood Cell Count 4.54 M/mm3 (4.30-5.90)
[2022-09-18 21:09] LABS: Albumin, Blood 3.8 g/dL (3.4-5.0); Albumin/Globulin Ratio 1.2 (0.8-1.8); Bilirubin, Total 0.3 mg/dL (0.1-1.0); Bun/Creatinine Ratio 17.5 (12.0-20.0); Calcium, Blood 8.9 mg/dL (8.5-10.1); Creatinine, Blood 0.86 mg/dL (0.60-1.20); Globulin, Blood 3.1 g/dL (2.2-4.0); Total Protein, Blood 6.9 g/dL (6.4-8.2)
[2022-09-18 23:23] LABS: Influenza A, PCR NEGATIVE (NEGATIVE); Influenza B, PCR NEGATIVE (NEGATIVE); Resp Syncytial Virus, PCR NEGATIVE (NEGATIVE); SARS-Cov-2 (COVID-19) PCR, MMC NEGATIVE (NEGATIVE)
[2022-09-18] MEDS ORDERED: ZYRTEC10 M2 PO (23:56)
[2022-09-18] MEDS ORDERED: Atarax10 MG PO (23:56)
[2022-09-19] MEDS ORDERED: VITAMIN D5000 UNIT PO (00:49)
[2022-09-19] MEDS ORDERED: CO Q10100 MG PO (00:49)
[2022-09-19] MEDS ORDERED: L-ARGININE350 MG PO (00:50)
[2022-09-19] MEDS ORDERED: BIOTIN PLUS 5,1 EACH PO (00:52)
[2022-09-19] MEDS ORDERED: C COMPLEX1000 M1 PO (00:53)
--- NOTE | 2022-09-19 01:22 | NUR ---
PHYSICIAN COMMUNICATION CONTACTED PLATFORM BUILDER RESIDENT, DR GAMA, TO NOTIFY HER THAT THE PATIENT WAS ASKING FOR HIS HOME SLEEP AID, 10 MG PO ATARAX, TO BE ORDERED. RELAYED THAT THE PATIENT IS ALERT AND ORIENTED X4 AND STEADY ON HIS FEET. DR GAMA OKAYED ADDING THE MEDICATION TO HIS EMAR.
[2022-09-19 04:21] LABS: White Blood Cell Count 7.36 K/mm3 (4.00-11.30)
[2022-09-19 04:22] LABS: BASOPHILS ABSOLUTE AUTO 0.06 K/mm3 (0.00-0.23); BASOPHILS PERCENT AUTO 1 % (0-2); EOSINOPHILS ABSOLUTE AUTO 0.42 K/mm3 (0.00-0.68); EOSINOPHILS PERCENT AUTO 6 % (0-6); Hematocrit 38.6 % (37.0-53.0); Hemoglobin 13.8 g/dL (13.5-17.5); IMMATURE GRAN ABSOLUTE AUTO 0.02 K/mm3 (0.00-0.10); IMMATURE GRAN PERCENT AUTO 0 % (0-1); LYMPHOCYTES ABSOLUTE AUTO 1.49 K/mm3 (0.84-5.20); LYMPHOCYTES PERCENT AUTO 20 % (21-46); MONOCYTES ABSOLUTE AUTO 0.78 K/mm3 (0.16-1.47); MONOCYTES PERCENT AUTO 11 % (4-13); Mean Corpuscular HGB 29.9 pg (26.0-34.0); Mean Corpuscular HGB Conc 35.8 g/dL (31.5-36.5); Mean Corpuscular Volume 84 fL (80-100); Mean Platelet Volume 10.3 fL (9.1-12.4); NEUTROPHILS ABSOLUTE AUTO 4.59 K/mm3 (1.96-9.15); NEUTROPHILS PERCENT AUTO 62 % (41-73); Platelet Count 202 K/mm3 (150-400); RDW Coefficient Variation 12.6 % (11.7-14.2); RDW Standard Deviation 38.4 fL (35.1-46.3); Red Blood Cell Count 4.62 M/mm3 (4.30-5.90)
--- NOTE | 2022-09-19 06:33 | NUR ---
SHIFT SUMMARY PATIENT ALERT AND ORIENTED X4. STABLE ON FEET AND ABLE TO AMBULATE INDEPENDENTLY. HEART RATE STABLE, MEDICATED PER EMAR FOR HYPERTENSION. PATIENT RESPONDED WELL TO MEDICATION. PATIENT DENIED HAVING ANY CHEST PAIN/PRESSURE. MEDICATED PER EMAR FOR HEADACHE. LUNGS DIMINISHED IN THE BASES, PATIENT REPORTS HAVING LABORED BREATHING AND IS NOTABLY SHORT OF BREATH UPON EXERTION. WILL CONTINUE TO MONITOR. CALL LIGHT WITHIN REACH.
[2022-09-19 06:37] LABS: Albumin, Blood 3.7 g/dL (3.4-5.0); Albumin/Globulin Ratio 1.3 (0.8-1.8); Bilirubin, Total 0.3 mg/dL (0.1-1.0); Bun/Creatinine Ratio 19.5 (12.0-20.0); Calcium, Blood 8.8 mg/dL (8.5-10.1); Creatinine, Blood 0.77 mg/dL (0.60-1.20); Globulin, Blood 2.9 g/dL (2.2-4.0); Potassium, Blood 3.9 mmol/L (3.5-5.5); Total Protein, Blood 6.6 g/dL (6.4-8.2)
--- NOTE | 2022-09-19 08:00 | NUR ---
INITIAL ASSESSMENT: Patient is sitting up in bed watching TV, he is Ox4. He reports 3/10 chest pressure that has been present for the last couple of days, he states it would exacerabate with activity at home. Patient C/O headache, nitro paste removed at this time. HRR, SR in the 90s, BP 170s systocially-AM Meds given at this time-will give hydralazine if needed. LS CTA, Biox WNL on RA. BT +, pt states he is having some slight abd pain in his lower abd, he states he could be coming down with something as his daughter has been sick. PPP. Patient denies other needs at this time.
[2022-09-19 12:50] LABS: CPK Creatine Kinase 93 U/L (39-308)
--- NOTE | 2022-09-19 16:30 | NUR ---
Update: I contacted Dr. Delarosa to let him know the patient has been medicated with Hydralazine twice this shift for hypertension, see new orders. Patient had an episode of what he he called chest pressure, this was relieved with Maalox. Pt states he takes Papaya supplements after every meal at home. Patient denies other needs at this time. Call light in reach.
--- NOTE | 2022-09-19 17:20 | NUR ---
Summary: Patient has been alert and oriented T/O the shift. He had one C/O what he called "chest pressure", this was relieved with Maalox. He has also C/O headache, this was relieved with Tylenol. HRR, he has been SR to ST 90s-115. He has been hypertensive, medicated with normal PO AM meds and two doses of PRN IV Hydralazine, has changed blood pressure medicaitons. LS CTA, biox has been high 90s on RA. BT+. PPP. No other acute changes this shift, will report to oncoming RN.
--- NOTE | 2022-09-20 04:33 | NUR ---
SHIFT SUMMARY PT A&Ox4, CALLS AND COMMUNICATES NEEDS APPROPRIATELY. SINUS 90's, BP ELEVATED, MANAGED PER EMAR. PT DENIES CP/PRESSURE. SPO2> 92% RA, DENIES SOB. PT IND IN ROOM WITH BATHROOM PRIVILEGES. NO OTHER EVENTS, PT RESTED COMFORTABLY THROUGHOUT NIGHT. WILL REPORT TO ONCOMING RN.
[2022-09-20 06:40] LABS: BASOPHILS ABSOLUTE AUTO 0.04 K/mm3 (0.00-0.23); BASOPHILS PERCENT AUTO 1 % (0-2); EOSINOPHILS ABSOLUTE AUTO 0.28 K/mm3 (0.00-0.68); EOSINOPHILS PERCENT AUTO 4 % (0-6); Hemoglobin 14.4 g/dL (13.5-17.5); IMMATURE GRAN ABSOLUTE AUTO 0.02 K/mm3 (0.00-0.10); IMMATURE GRAN PERCENT AUTO 0 % (0-1); LYMPHOCYTES ABSOLUTE AUTO 1.27 K/mm3 (0.84-5.20); LYMPHOCYTES PERCENT AUTO 16 % (21-46); MONOCYTES ABSOLUTE AUTO 0.84 K/mm3 (0.16-1.47); MONOCYTES PERCENT AUTO 10 % (4-13); Mean Corpuscular HGB 30.3 pg (26.0-34.0); Mean Corpuscular Volume 84 fL (80-100); Mean Platelet Volume 10.2 fL (9.1-12.4); NEUTROPHILS ABSOLUTE AUTO 5.64 K/mm3 (1.96-9.15); NEUTROPHILS PERCENT AUTO 70 % (41-73); Platelet Count 215 K/mm3 (150-400); RDW Standard Deviation 40.1 fL (35.1-46.3); Red Blood Cell Count 4.75 M/mm3 (4.30-5.90); White Blood Cell Count 8.09 K/mm3 (4.00-11.30)
[2022-09-20 07:00] LABS: Albumin, Blood 3.6 g/dL (3.4-5.0); Albumin/Globulin Ratio 1.1 (0.8-1.8); Bilirubin, Total 0.6 mg/dL (0.1-1.0); Bun/Creatinine Ratio 16.2 (12.0-20.0); Calcium, Blood 8.9 mg/dL (8.5-10.1); Creatinine, Blood 0.99 mg/dL (0.60-1.20); Globulin, Blood 3.4 g/dL (2.2-4.0); Potassium, Blood 4.1 mmol/L (3.5-5.5)
--- NOTE | 2022-09-20 09:53 | NUR ---
AM NOTE: ASSUMED CARE OF PT AT APPROX 0715 AFTER RECEIVING REPORT FROM MAGDIEL LOZA. PT A&Ox4, ACTIVE AND INDEPENDENT IN ROOM, COMMUNICATING NEEDS WELL. O2 SATS >93% ON RA, LS CTA, PT DENIES SOB, REPORTS EASIER TO TAKE DEEP BREATH COMPARED TO ADMISSION. SR/ST ON MONITOR, RATE 90s-105, PT DENIES CHEST PAIN/PRESSURE. BOWEL TONES PRESENT, PT DENIES N/V/D. PT MEDICATED PER EMAR W/OUT INCIDENT. AT THIS TIME, PT RESTING IN ROOM, WAITING FOR CLEAN CLOTHING TO BE DELIVERED BY SPOUSE SO HE CAN SHOWER. WILL CONTINUE TO MONITOR AND TREAT ACCORDINGLY.
--- NOTE | 2022-09-20 12:35 | NUR ---
MORNING SUMMARY/TRANSFER: PT HAS BEEN A&Ox4 T/OUT THE MORNING, ABLE TO MAKE NEEDS KNOWN. FAMILY CONTINUES AT BEDSIDE, INVOLVED IN DECISION MAKING/PLANNING W/PROVIDERS AT BEDSIDE. O2 SATS MAINTAINED >88% ON 13L/MIN VIA HHNC. PT REPORTS APPROPRIATE PAIN CONTROL T/OUT THE MORNING. AT THIS TIME, PLAN OF CARE IS DC HOME ON HOSPICE W/FAMILY TOMORROW. PT RECEIVES NEW BED ASSIGNMENT, REPORT GIVEN TO MAGDIEL PETERSON TO RECEIVE PT.
[2022-09-20] MEDS ORDERED: LOSA50 PO (14:18)
[2022-09-20] MEDS ORDERED: OMEP20ER PO (14:18)
--- NOTE | 2022-09-20 15:19 | NUR ---
DISCHARGE: PT HAS BEEN CLEARED FOR DISCHARGE HOME. IV ACCESS DC'd WNL. PT DRESSES SELF INDEPENDENTLY. PT PROVIDED WITH DC PAPERWORK/INSTRUCTIONS, V/U, ALL QUESTIONS ANSWERED. PT ESCORTED FROM UNIT VIA W/C W/OUT INCIDENT.
== END 2022-09-20 15:12 | disposition home or self-care (01) ==
LOC: ER 19:22 → PCU 19:23
PROVIDERS: Emergency Medicine; Internal Medicine; Student in an Organized Health Care Education/Training Program; ADMIT Internal Medicine
DX: I16.1 Hypertensive emergency (principal); I50.42 Chronic combined systolic (congestive) and diastolic (congestive) heart failure; E78.5 Hyperlipidemia, unspecified; C61 Malignant neoplasm of prostate; I25.2 Old myocardial infarction; I25.10 Atherosclerotic heart disease of native coronary artery without angina pectoris; I16.0 Hypertensive urgency; Z20.822 Contact with and (suspected) exposure to COVID-19; Z88.0 Allergy status to penicillin; Z88.2 Allergy status to sulfonamides; Z95.1 Presence of aortocoronary bypass graft; F17.210 Nicotine dependence, cigarettes, uncomplicated; Z79.82 Long term (current) use of aspirin; R07.9 Chest pain, unspecified; I11.0 Hypertensive heart disease with heart failure
CPT/HCPCS: 0241U; 36415; 71046; 80053; 82550; 84484; 85025; 93005; 93010; 96372; 96374; 96375; 96376; 99285-25; A9270; G0378; J0360; J1650; J2060

== ENCOUNTER 2023-08-10 20:00 | Emergency (ER) | payer MEDICARE ==
[~2023-08-10] VITALS: Ht 170.2 cm; Wt 68.0 kg
[~2023-08-10 20:00] MED LIST changes: +Atarax10 MG PO; +BIOTIN PLUS 5,1 EACH PO; +C COMPLEX1000 M1 PO; +CO Q10100 MG PO; +L-ARGININE350 MG PO; +LOSA50 PO; +NITROGLYCERIN0.4 M3; +OMEP20ER PO; +VITAMIN D5000 UNIT PO; +ZYRTEC10 M2 PO
[2023-08-10 20:37] LABS: BASOPHILS ABSOLUTE AUTO 0.09 K/mm3 (0.00-0.23); BASOPHILS PERCENT AUTO 1 % (0-2); EOSINOPHILS ABSOLUTE AUTO 1.16 K/mm3 (0.00-0.68); EOSINOPHILS PERCENT AUTO 14 % (0-6); Hematocrit 39.4 % (37.0-53.0); Hemoglobin 14.1 g/dL (13.5-17.5); IMMATURE GRAN ABSOLUTE AUTO 0.02 K/mm3 (0.00-0.10); IMMATURE GRAN PERCENT AUTO 0 % (0-1); LYMPHOCYTES PERCENT AUTO 22 % (21-46); MONOCYTES PERCENT AUTO 7 % (4-13); Mean Corpuscular HGB 30.7 pg (26.0-34.0); Mean Corpuscular HGB Conc 35.8 g/dL (31.5-36.5); Mean Corpuscular Volume 86 fL (80-100); NEUTROPHILS ABSOLUTE AUTO 4.56 K/mm3 (1.96-9.15); NEUTROPHILS PERCENT AUTO 55 % (41-73); Platelet Count 245 K/mm3 (150-400); RDW Coefficient Variation 12.8 % (11.7-14.2); Red Blood Cell Count 4.59 M/mm3 (4.30-5.90); White Blood Cell Count 8.23 K/mm3 (4.00-11.30)
[2023-08-10 20:59] LABS: Albumin, Blood 3.6 g/dL (3.4-5.0); Albumin/Globulin Ratio 1.2 (0.8-1.8); Bilirubin, Total 0.2 mg/dL (0.1-1.0); Bun/Creatinine Ratio 18.7 (12.0-20.0); Calcium, Blood 9.3 mg/dL (8.5-10.1); Creatinine, Blood 0.96 mg/dL (0.60-1.20); Globulin, Blood 3.1 g/dL (2.2-4.0); Potassium, Blood 3.7 mmol/L (3.5-5.5); Total Protein, Blood 6.7 g/dL (6.4-8.2)
[2023-08-11 02:15] VITALS: BP 184/95
[2023-08-11 03:01] LABS: Influenza A, PCR NEGATIVE (NEGATIVE); Influenza B, PCR NEGATIVE (NEGATIVE); Resp Syncytial Virus, PCR NEGATIVE (NEGATIVE); SARS-Cov-2 (COVID-19) PCR, MMC NEGATIVE (NEGATIVE)
[2023-08-11] MEDS ORDERED: PRED20 PO (05:45)
== END 2023-08-11 06:06 | disposition home or self-care (01) ==
LOC: ER 20:00
PROVIDERS: Physician Assistant; Student in an Organized Health Care Education/Training Program
DX: J44.9 Chronic obstructive pulmonary disease, unspecified (principal); F17.210 Nicotine dependence, cigarettes, uncomplicated; I25.10 Atherosclerotic heart disease of native coronary artery without angina pectoris; I11.0 Hypertensive heart disease with heart failure; I50.9 Heart failure, unspecified; I73.9 Peripheral vascular disease, unspecified; E78.5 Hyperlipidemia, unspecified; Z95.1 Presence of aortocoronary bypass graft; Z79.82 Long term (current) use of aspirin; Z79.899 Other long term (current) drug therapy; Z88.0 Allergy status to penicillin; Z88.2 Allergy status to sulfonamides
CPT/HCPCS: 0241U; 71046; 80053; 83880; 84484; 85025; 93005; 93010; 99285-25; J7512

== ENCOUNTER 2024-02-07 18:56 | Emergency (ER) | payer MEDICARE ==
[~2024-02-07] VITALS: Ht 170.2 cm; Wt 72.6 kg
[~2024-02-07 18:56] MED LIST changes: -AMLO5 PO; -COENZYME Q-10200 M1 PO; -TAMS.4ER PO
[2024-02-07] MEDS ORDERED: COENZYME Q-10200 M1 PO (19:22)
[2024-02-07] MEDS ORDERED: AMLO5 PO (19:22)
[2024-02-07] MEDS ORDERED: Norco 5-325 Ta1 EACH PO (19:23)
[2024-02-07] MEDS ORDERED: TAMS.4ER PO (19:28)
[2024-02-07 21:03] LABS: Influenza A, PCR NEGATIVE (NEGATIVE); Influenza B, PCR NEGATIVE (NEGATIVE); Resp Syncytial Virus, PCR NEGATIVE (NEGATIVE); SARS-Cov-2 (COVID-19) PCR, MMC NEGATIVE (NEGATIVE)
[2024-02-07 21:45] VITALS: BP 134/63
== END 2024-02-08 01:06 | disposition left against medical advice (07) ==
LOC: ER 18:56
PROVIDERS: Emergency Medicine
DX: R06.02 Shortness of breath (principal); R53.1 Weakness; I25.2 Old myocardial infarction; E78.5 Hyperlipidemia, unspecified; I11.0 Hypertensive heart disease with heart failure; I50.9 Heart failure, unspecified; Z86.73 Personal history of transient ischemic attack (TIA), and cerebral infarction without residual deficits; Z79.82 Long term (current) use of aspirin; Z79.899 Other long term (current) drug therapy; Z79.52 Long term (current) use of systemic steroids; Z88.0 Allergy status to penicillin; Z88.2 Allergy status to sulfonamides
CPT/HCPCS: 0241U; 70450; 71260; 80053; 83721; 83880; 84484; 85025; 85379; 93005; 93010; 99285-25; Q9967

== ENCOUNTER → 2024-02-07 | Outpatient (CLI) | payer MEDICARE ==
[~2024-02-07] MED LIST changes: +AMLO5 PO; +COENZYME Q-10200 M1 PO; +PRED20 PO; +TAMS.4ER PO
[2024-02-07 18:52] LABS: BASOPHILS ABSOLUTE AUTO 0.05 K/mm3 (0.00-0.23); BASOPHILS PERCENT AUTO 1 % (0-2); EOSINOPHILS PERCENT AUTO 6 % (0-6); Hematocrit 35.6 % (37.0-53.0); Hemoglobin 12.6 g/dL (13.5-17.5); IMMATURE GRAN ABSOLUTE AUTO 0.01 K/mm3 (0.00-0.10); IMMATURE GRAN PERCENT AUTO 0 % (0-1); LYMPHOCYTES ABSOLUTE AUTO 1.67 K/mm3 (0.84-5.20); LYMPHOCYTES PERCENT AUTO 24 % (21-46); MONOCYTES ABSOLUTE AUTO 0.72 K/mm3 (0.16-1.47); MONOCYTES PERCENT AUTO 11 % (4-13); Mean Corpuscular HGB 30.7 pg (26.0-34.0); Mean Corpuscular HGB Conc 35.4 g/dL (31.5-36.5); Mean Corpuscular Volume 87 fL (80-100); Mean Platelet Volume 9.7 fL (9.1-12.4); NEUTROPHILS ABSOLUTE AUTO 4.02 K/mm3 (1.96-9.15); NEUTROPHILS PERCENT AUTO 59 % (41-73); Platelet Count 219 K/mm3 (150-400); RDW Coefficient Variation 12.2 % (11.7-14.2); RDW Standard Deviation 38.6 fL (35.1-46.3); Red Blood Cell Count 4.11 M/mm3 (4.30-5.90); White Blood Cell Count 6.87 K/mm3 (4.00-11.30)
[2024-02-07 19:05] LABS: Albumin, Blood 3.8 g/dL (3.4-5.0); Albumin/Globulin Ratio 1.2 (0.8-1.8); Bilirubin, Total 0.2 mg/dL (0.1-1.0); Bun/Creatinine Ratio 12.7 (12.0-20.0); Creatinine, Blood 1.18 mg/dL (0.60-1.20); Globulin, Blood 3.3 g/dL (2.2-4.0); Total Protein, Blood 7.1 g/dL (6.4-8.2)
== END | disposition home or self-care (01) ==
LOC: LAB 18:49 → LAB SHORT 18:49
PROVIDERS: Emergency Medicine
DX: I50.9 Heart failure, unspecified (principal); Z86.73 Personal history of transient ischemic attack (TIA), and cerebral infarction without residual deficits
CPT/HCPCS: 80053; 83880; 84484; 85025; 85379

== ENCOUNTER 2024-03-10 19:43 | Observation (INO) | payer MEDICARE ==
[~2024-03-10] VITALS: Ht 167.6 cm; Wt 70.3 kg
[~2024-03-10 19:43] MED LIST changes: +AMLO5 PO; +COENZYME Q-10200 M1 PO; +TAMS.4ER PO
[2024-03-10] MEDS ORDERED: Nitroglycerin 0.4 MG SUBL SL PRN (19:55)
[2024-03-10] MEDS ORDERED: Aspirin 325 MG Tab PO ONE (19:55)
[2024-03-10 20:17] LABS: BASOPHILS ABSOLUTE AUTO 0.05 K/mm3 (0.00-0.23); BASOPHILS PERCENT AUTO 1 % (0-2); EOSINOPHILS ABSOLUTE AUTO 0.48 K/mm3 (0.00-0.68); EOSINOPHILS PERCENT AUTO 7 % (0-6); Hematocrit 35.1 % (37.0-53.0); Hemoglobin 12.3 g/dL (13.5-17.5); IMMATURE GRAN ABSOLUTE AUTO 0.02 K/mm3 (0.00-0.10); IMMATURE GRAN PERCENT AUTO 0 % (0-1); LYMPHOCYTES ABSOLUTE AUTO 1.66 K/mm3 (0.84-5.20); LYMPHOCYTES PERCENT AUTO 24 % (21-46); MONOCYTES ABSOLUTE AUTO 0.82 K/mm3 (0.16-1.47); MONOCYTES PERCENT AUTO 12 % (4-13); Mean Corpuscular HGB 30.4 pg (26.0-34.0); Mean Corpuscular Volume 87 fL (80-100); Mean Platelet Volume 9.8 fL (9.1-12.4); NEUTROPHILS ABSOLUTE AUTO 3.78 K/mm3 (1.96-9.15); NEUTROPHILS PERCENT AUTO 56 % (41-73); Platelet Count 209 K/mm3 (150-400); RDW Coefficient Variation 12.5 % (11.7-14.2); RDW Standard Deviation 39.8 fL (35.1-46.3); Red Blood Cell Count 4.05 M/mm3 (4.30-5.90); White Blood Cell Count 6.81 K/mm3 (4.00-11.30)
[2024-03-10] MEDS ORDERED: Aspirin 81 MG Chew PO ONE (20:30)
[2024-03-10 20:37] LABS: Bun/Creatinine Ratio 14.1 (12.0-20.0); Calcium, Blood 8.5 mg/dL (8.5-10.1); Creatinine, Blood 0.92 mg/dL (0.60-1.20); Magnesium, Blood 1.9 mg/dL (1.6-2.4); Potassium, Blood 3.4 mmol/L (3.5-5.5)
[2024-03-10] MEDS ORDERED: Acetaminophen 325 MG TABLET PO PRN (21:50)
[2024-03-10] MEDS ORDERED: Ondansetron HCl 2 MG / ML 2ML Vial IV PRN (21:55)
[2024-03-10] MEDS ORDERED: Albuterol 2.5 MG/3 ML VIAL INH PRN (21:55)
[2024-03-10] MEDS ORDERED: Potassium Chloride 20 MEQ TabCR PO ONE (22:00)
[2024-03-10] MEDS ORDERED: Albuterol 2.5 MG/3 ML VIAL INH ONE (22:00)
[2024-03-10] MEDS ORDERED: Ipratropium/Albuterol SulF 2.5-0.5MG/3 ML Amp INH SCH (22:00)
[2024-03-10] MEDS ORDERED: Ampicillin Sod/Sulbactam Sod 1.5 GM in NS 100 ML IV SCH (22:40)
[2024-03-10] MEDS ORDERED: METO50ER PO (23:00)
[2024-03-10] MEDS ORDERED: HYDR10 PO (23:02)
[2024-03-10 23:07] VITALS: BP 164/85
[2024-03-11 00:09] LABS: Adenovirus Not Detected (NOT DETECT); Bordetella pertussis Not Detected (NOT DETECT); Chlamydophila pneumoniae Not Detected (NOT DETECT); Coronavirus 229E Not Detected (NOT DETECT); Coronavirus HKU1 Not Detected (NOT DETECT); Coronavirus NL63 Not Detected (NOT DETECT); Coronavirus OC43 Not Detected (NOT DETECT); Human Metapneumovirus Not Detected (NOT DETECT); Human Rhinovirus/Enterovirus Not Detected (NOT DETECT); Influenza A/2009-H1 Not Detected (NOT DETECT); Influenza A/H1 Not Detected (NOT DETECT); Influenza A/H3 Not Detected (NOT DETECT); Influenza B Not Detected (NOT DETECT); Mycoplasma pneumoniae Not Detected (NOT DETECT); Parainfluenza Virus 1 Not Detected (NOT DETECT); Parainfluenza Virus 2 Not Detected (NOT DETECT); Parainfluenza Virus 3 Not Detected (NOT DETECT); Parainfluenza Virus 4 Not Detected (NOT DETECT); Respiratory Syncytial Virus Not Detected (NOT DETECT); SARS-Cov-2 (COVID-19), BioFire Not Detected (NOT DETECT)
[2024-03-11] MEDS ORDERED: Melatonin 5 MG Tablet PO PRN (00:35)
[2024-03-11 01:48] LABS: Bun/Creatinine Ratio 12.6 (12.0-20.0); Calcium, Blood 8.4 mg/dL (8.5-10.1); Creatinine, Blood 0.95 mg/dL (0.60-1.20); Potassium, Blood 3.6 mmol/L (3.5-5.5)
[2024-03-11] MEDS ORDERED: Albuterol 2.5 MG/3 ML VIAL INH PRN (02:10)
[2024-03-11 04:14] VITALS: BP 152/58
[2024-03-11] MEDS ORDERED: Omeprazole 20 MG CapCR PO SCH (06:00)
[2024-03-11 07:19] VITALS: BP 167/84
--- NOTE | 2024-03-11 07:25 | NUR ---
SHIFT SUMMARY PT ARRIVED TO ROOM 349 FROM ER AT 2300 VIA WHEELCHAIR. PT TRANSFERED SELF INDEPENDENTLY TO HOSPITAL BED. PT IS A&OX4, PLEASANT AND COOPERATIVE WITH CARES. VSS ON RA. PER TELEMETRY, PT IS SR @ 63 BPM. NO C/O CHEST PAIN OR PRESSURE THIS SHIFT. HAS A MOIST COUGH WITH SOME CONGESTION. DENIES PAIN. UP AD EUGENE INDEPENDENTLY IN ROOM/BR. TOLERATING A REGULAR DIET. VOIDING IN TOILET. X2 BM'S THIS SHIFT. BED IN LOWEST POSITION, CALL LIGHT WITHIN REACH.
[2024-03-11] MEDS ORDERED: Metoprolol Succinate 50 MG TABCR PO SCH (09:00)
[2024-03-11] MEDS ORDERED: Lisinopril 20 MG Tab PO SCH (09:00)
[2024-03-11] MEDS ORDERED: Tamsulosin HCl 0.4 MG Cap PO SCH (09:00)
[2024-03-11] MEDS ORDERED: AmLODIPine Besylate 5 MG Tab PO SCH (09:00)
[2024-03-11] MEDS ORDERED: Enoxaparin 40 MG/0.4 ML SYR SC SCH (09:00)
[2024-03-11] MEDS ORDERED: Aspirin 81 MG Chew PO SCH (09:00)
--- NOTE | 2024-03-11 09:00 | NUR ---
pt laying in bed watching tv, a/ox4, pleasant and cooperative with care, follows commands well, denies pain, states no pain since he came in, lungs are clear t/o, resp even and unlabored, no cough noted, hrr, no edema noted to b/l le, ppp+1, cap refill <3 sec, vs stable, afebrile, piv to lw, and lac, sites are clear and patent, btx4, abd flat soft nontender, voids without diff, skin c/w/d, mawe, antonio, call light in reach.
[2024-03-11] MEDS ORDERED: Psyllium 1 EA Pack PO ONE (12:00)
[2024-03-11] MEDS ORDERED: PANT40 PO (12:29)
[2024-03-11] MEDS ORDERED: ASPI81CH PO (12:34)
[2024-03-11] MEDS ORDERED: Acetaminophen325 M1 PO (12:36)
[2024-03-11] MEDS ORDERED: MELATONIN5 M1 PO (12:37)
[2024-03-11] MEDS ORDERED: LISI20 PO (12:37)
[2024-03-11] MEDS ORDERED: CLOP75 PO (12:38)
--- NOTE | 2024-03-11 14:17 | NUR ---
Pt has been discharged to home, went over discharge instructions with him, he verbalized understanding, ivx2 removed intact, new medications faxed to [facility]. left via wheelchair with mobile sales technician with all belongings.
== END 2024-03-11 14:18 | disposition home or self-care (01) ==
LOC: ER 19:43 → MEDS 19:44 → ER 22:50 → MEDS 23:00 → ENPENDDIS 03-11 13:23 → MEDS 03-11 14:18
PROVIDERS: Emergency Medicine; Nurse Practitioner Acute Care; ADMIT Family Medicine
DX: I25.118 Atherosclerotic heart disease of native coronary artery with other forms of angina pectoris (principal); I10 Essential (primary) hypertension; E78.5 Hyperlipidemia, unspecified; J44.9 Chronic obstructive pulmonary disease, unspecified; I73.9 Peripheral vascular disease, unspecified; N40.0 Benign prostatic hyperplasia without lower urinary tract symptoms; I25.2 Old myocardial infarction; Z88.0 Allergy status to penicillin; Z88.2 Allergy status to sulfonamides; Z95.1 Presence of aortocoronary bypass graft; Z79.899 Other long term (current) drug therapy
CPT/HCPCS: 0202U; 36415; 71046; 71260; 80048; 83735; 83880; 84484; 85025; 85379; 93005; 93010; 94640; 94664; 94762; 96372; 99285-25; A9270; G0378; J1650; Q9967

== ENCOUNTER 2024-03-24 16:09 | Emergency (ER) | payer MEDICARE ==
[~2024-03-24] VITALS: Ht 167.6 cm; Wt 72.6 kg
[~2024-03-24 16:09] MED LIST changes: +Acetaminophen325 M1 PO; +CLOP75 PO; +HYDR10 PO; +MELATONIN5 M1 PO; +PANT40 PO
[2024-03-24] MEDS ORDERED: AMLO5 PO (16:30)
[2024-03-24 16:44] LABS: BASOPHILS ABSOLUTE AUTO 0.06 K/mm3 (0.00-0.23); BASOPHILS PERCENT AUTO 1 % (0-2); EOSINOPHILS ABSOLUTE AUTO 0.29 K/mm3 (0.00-0.68); EOSINOPHILS PERCENT AUTO 4 % (0-6); Hematocrit 35.3 % (37.0-53.0); Hemoglobin 12.3 g/dL (13.5-17.5); IMMATURE GRAN ABSOLUTE AUTO 0.02 K/mm3 (0.00-0.10); IMMATURE GRAN PERCENT AUTO 0 % (0-1); LYMPHOCYTES ABSOLUTE AUTO 1.55 K/mm3 (0.84-5.20); LYMPHOCYTES PERCENT AUTO 21 % (21-46); MONOCYTES ABSOLUTE AUTO 0.79 K/mm3 (0.16-1.47); MONOCYTES PERCENT AUTO 11 % (4-13); Mean Corpuscular HGB 30.2 pg (26.0-34.0); Mean Corpuscular HGB Conc 34.8 g/dL (31.5-36.5); Mean Corpuscular Volume 87 fL (80-100); NEUTROPHILS ABSOLUTE AUTO 4.65 K/mm3 (1.96-9.15); NEUTROPHILS PERCENT AUTO 63 % (41-73); Platelet Count 220 K/mm3 (150-400); RDW Coefficient Variation 12.6 % (11.7-14.2); RDW Standard Deviation 40.1 fL (35.1-46.3); Red Blood Cell Count 4.07 M/mm3 (4.30-5.90); White Blood Cell Count 7.36 K/mm3 (4.00-11.30)
[2024-03-24 16:54] LABS: Albumin, Blood 3.6 g/dL (3.4-5.0); Albumin/Globulin Ratio 1.3 (0.8-1.8); Bilirubin, Total 0.3 mg/dL (0.1-1.0); Bun/Creatinine Ratio 16.3 (12.0-20.0); Calcium, Blood 8.7 mg/dL (8.5-10.1); Creatinine, Blood 0.92 mg/dL (0.60-1.20); Globulin, Blood 2.7 g/dL (2.2-4.0); Potassium, Blood 3.7 mmol/L (3.5-5.5); Total Protein, Blood 6.3 g/dL (6.4-8.2)
[2024-03-24 19:15] VITALS: BP 140/66
== END 2024-03-24 19:32 | disposition home or self-care (01) ==
LOC: ER 16:09
PROVIDERS: Emergency Medicine
DX: R07.2 Precordial pain (principal); I25.10 Atherosclerotic heart disease of native coronary artery without angina pectoris; I25.2 Old myocardial infarction; I10 Essential (primary) hypertension; J44.9 Chronic obstructive pulmonary disease, unspecified; F17.210 Nicotine dependence, cigarettes, uncomplicated; Z88.0 Allergy status to penicillin; Z88.2 Allergy status to sulfonamides; Z88.8 Allergy status to other drugs, medicaments and biological substances; Z79.82 Long term (current) use of aspirin; Z79.899 Other long term (current) drug therapy; Z95.1 Presence of aortocoronary bypass graft; Z86.73 Personal history of transient ischemic attack (TIA), and cerebral infarction without residual deficits
CPT/HCPCS: 71046; 80053; 84484; 85025; 93005; 93010; 99285-25

== ENCOUNTER 2024-04-28 13:36 | Observation (INO) | payer MEDICARE, OTHER ==
[~2024-04-28] VITALS: Ht 167.6 cm; Wt 72.6 kg
[~2024-04-28 13:36] MED LIST changes: -NITROGLYCERIN0.4 M3; +NITROGLYCERIN0.4 M3 SL
[2024-04-28 14:21] LABS: BASOPHILS ABSOLUTE AUTO 0.04 K/mm3 (0.00-0.23); BASOPHILS PERCENT AUTO 1 % (0-2); EOSINOPHILS ABSOLUTE AUTO 0.15 K/mm3 (0.00-0.68); EOSINOPHILS PERCENT AUTO 3 % (0-6); Hematocrit 37.1 % (37.0-53.0); Hemoglobin 13.3 g/dL (13.5-17.5); IMMATURE GRAN ABSOLUTE AUTO 0.02 K/mm3 (0.00-0.10); IMMATURE GRAN PERCENT AUTO 0 % (0-1); LYMPHOCYTES ABSOLUTE AUTO 1.13 K/mm3 (0.84-5.20); LYMPHOCYTES PERCENT AUTO 19 % (21-46); MONOCYTES ABSOLUTE AUTO 0.57 K/mm3 (0.16-1.47); MONOCYTES PERCENT AUTO 9 % (4-13); Mean Corpuscular HGB 30.2 pg (26.0-34.0); Mean Corpuscular HGB Conc 35.8 g/dL (31.5-36.5); Mean Corpuscular Volume 84 fL (80-100); Mean Platelet Volume 9.9 fL (9.1-12.4); NEUTROPHILS ABSOLUTE AUTO 4.17 K/mm3 (1.96-9.15); NEUTROPHILS PERCENT AUTO 69 % (41-73); Platelet Count 217 K/mm3 (150-400); RDW Coefficient Variation 12.1 % (11.7-14.2); RDW Standard Deviation 37.2 fL (35.1-46.3); White Blood Cell Count 6.08 K/mm3 (4.00-11.30)
[2024-04-28 14:32] LABS: Albumin, Blood 3.5 g/dL (3.4-5.0); Albumin/Globulin Ratio 1.2 (0.8-1.8); Bilirubin, Total 0.5 mg/dL (0.1-1.0); Bun/Creatinine Ratio 12.4 (12.0-20.0); Calcium, Blood 8.5 mg/dL (8.5-10.1); Creatinine, Blood 0.81 mg/dL (0.60-1.20); Globulin, Blood 2.9 g/dL (2.2-4.0); Potassium, Blood 3.5 mmol/L (3.5-5.5); Total Protein, Blood 6.4 g/dL (6.4-8.2)
[2024-04-28] MEDS ORDERED: FLU VACC TS2024-25(6MOS UP)/PF 45 MCG/0.5 ML SYRINGE IM SCH (16:00)
[2024-04-28 18:37] VITALS: BP 226/103
[2024-04-28] MEDS ORDERED: HydrALAZINE HCl 25 MG Tab PO PRN (19:55)
[2024-04-28] MEDS ORDERED: AmLODIPine Besylate 5 MG Tab PO SCH (21:00)
[2024-04-28] MEDS ORDERED: Melatonin 3 MG Tab PO SCH (21:55)
[2024-04-28] MEDS ORDERED: Tamsulosin HCl 0.4 MG Cap PO SCH (21:55)
[2024-04-28 22:00] VITALS: BP 196/89
[2024-04-28] MEDS ORDERED: HydrALAZINE HCl 10 MG Tab PO SCH (22:00)
[2024-04-28] MEDS ORDERED: Acetaminophen650 M1 PO (22:45)
[2024-04-28] MEDS ORDERED: L-ARGININE350 MG PO (22:46)
[2024-04-28] MEDS ORDERED: C COMPLEX PO (22:47)
[2024-04-28] MEDS ORDERED: BIOTIN PLUS 5,1 EACH PO (22:48)
[2024-04-28] MEDS ORDERED: MELATONIN5 M1 PO (22:50)
[2024-04-28] MEDS ORDERED: METO50ER PO (22:51)
[2024-04-28] MEDS ORDERED: CO Q10200 MG PO (22:52)
[2024-04-28] MEDS ORDERED: VITAMIN D31000 UNI1 PO (22:52)
[2024-04-29] VITALS (13 sets, daily range): BP systolic 144–214; BP diastolic 66–110
[2024-04-29 05:59] LABS: BASOPHILS ABSOLUTE AUTO 0.05 K/mm3 (0.00-0.23); BASOPHILS PERCENT AUTO 1 % (0-2); EOSINOPHILS ABSOLUTE AUTO 0.28 K/mm3 (0.00-0.68); EOSINOPHILS PERCENT AUTO 5 % (0-6); Hematocrit 39.3 % (37.0-53.0); Hemoglobin 13.9 g/dL (13.5-17.5); IMMATURE GRAN ABSOLUTE AUTO 0.01 K/mm3 (0.00-0.10); IMMATURE GRAN PERCENT AUTO 0 % (0-1); LYMPHOCYTES ABSOLUTE AUTO 1.32 K/mm3 (0.84-5.20); LYMPHOCYTES PERCENT AUTO 24 % (21-46); MONOCYTES ABSOLUTE AUTO 0.58 K/mm3 (0.16-1.47); MONOCYTES PERCENT AUTO 11 % (4-13); Mean Corpuscular HGB 30.2 pg (26.0-34.0); Mean Corpuscular HGB Conc 35.4 g/dL (31.5-36.5); Mean Corpuscular Volume 85 fL (80-100); Mean Platelet Volume 10.3 fL (9.1-12.4); NEUTROPHILS ABSOLUTE AUTO 3.21 K/mm3 (1.96-9.15); NEUTROPHILS PERCENT AUTO 59 % (41-73); Platelet Count 204 K/mm3 (150-400); RDW Coefficient Variation 12.2 % (11.7-14.2); RDW Standard Deviation 37.5 fL (35.1-46.3); Red Blood Cell Count 4.61 M/mm3 (4.30-5.90); White Blood Cell Count 5.45 K/mm3 (4.00-11.30)
[2024-04-29] MEDS ORDERED: Pantoprazole Sodium 40 MG Tab PO SCH (06:00)
[2024-04-29 06:24] LABS: Bun/Creatinine Ratio 11.3 (12.0-20.0); Calcium, Blood 8.8 mg/dL (8.5-10.1); Creatinine, Blood 0.88 mg/dL (0.60-1.20); Potassium, Blood 3.8 mmol/L (3.5-5.5)
--- NOTE | 2024-04-29 06:36 | NUR ---
SHIFT SUMMARY PT A&OX4 AND ANSWERS QUESTIONS APPROPRIATELY. MEDICATIONS RECONCILLED PARTIALLY, NEEDS MORE INFORMATION ON HOME MEDICATION DOSES. PT RECEIVED ALL SCHEDULED MEDS. PT SHOWERED AT START OF SHIFT. PT ON TELE RUNNING NSR. PT TO HAVE STRESS TEST ON 04/29 AT 1330 AND IS CURRENTLY NPO. BP IS ELEVATED WITH NO SYMPTOMS REPORTED/ASSESSED FROM PT. REMAINING VSS, NO COMPLAINTS OF CP/PRESSURE OR SOB AT THIS TIME. NO ACUTE EVENTS AT THIS TIME. PT REPOSITIONED INDEPENDENTLY. PT LEFT IN A POSITION OF SAFETY WITH FALL PREACAUTIONS IN PLACE AND CALL LIGHT IN REACH.
[2024-04-29] MEDS ORDERED: Tamsulosin HCl 0.4 MG Cap PO SCH ×2 (09:00→21:00)
[2024-04-29] MEDS ORDERED: Clopidogrel Bisulfate 75 MG Tab PO SCH (09:00)
[2024-04-29] MEDS ORDERED: Aspirin 81 MG TabEC PO SCH (09:00)
[2024-04-29] MEDS ORDERED: Metoprolol Succinate 50 MG TABCR PO SCH (09:00)
[2024-04-29] MEDS ORDERED: Lisinopril 20 MG Tab PO SCH (09:00)
[2024-04-29] MEDS ORDERED: Enoxaparin 40 MG/0.4 ML SYR SC SCH (09:00)
--- NOTE | 2024-04-29 13:08 | NUR ---
AM NOTE: PATIENT ALERT AND ORIENTED. IND TO BATHROOM AND MOVEMENTS IN BED. DENIES NUMBNESS/TINGLING. DENIES HEADACHE/VISION CHANGES. ON ROOM AIR, SATING ABOVE 95%. LUNGS SOUNDS CLEAR. DENIES SOB/COUGH. TELE SHOWING SR/ST WITH HR 90-120'S. SBP 170-180'S. PATIENT REPORTS NOT TAKING PO METOPROLOL AT HOME FOR A FEW DAYS. PO MEDS GIVEN THIS AM. SBP IMPROVED TO 140'S. PLAN FOR CARDIAC STRESS TEST TODAY. PATIENT STATES HE OCCASIONALLY FEELS PALPITATIONS BUT DENIES CHEST PAIN THIS MORNING. BOWEL TONES PRESENT. PATIENT STATES HE IS FEELING CONSTIPATED AND REQUESTING "FIBER". DENIES ABDOMINAL PAIN/NAUSEA. UP TO BATHROOM IND. NPO THIS AM FOR CARDIAC STRESS TEST. SKIN OVERALL C/D/I WITH SOME SCATTERED BRUISING. DENIES NEEDS AT THIS TIME. CALL LIGHT IN REACH.
[2024-04-29] MEDS ORDERED: Regadenoson 0.4 MG/5 ML SYRINGE ONE (13:20)
[2024-04-29] MEDS ORDERED: Caffeine Citrated 60 MG/3 ML Vial ONE (13:20)
[2024-04-29] MEDS ORDERED: Polyethylene Glycol 3350 17 gm PO PRN (13:30)
--- NOTE | 2024-04-29 13:32 | NUR ---
DR. BARRON UPDATED BY THIS RN ON PATIENT CONSTIPATION AND REQUESTING BOWEL CARE MEDS. PLAN FOR ONE DAY CARDIAC STRESS TEST TO BE COMPLETED AT 1345.
--- NOTE | 2024-04-29 13:38 | NUR ---
HEART CENTER STAFF IN ROOM AT THIS TIME.
[2024-04-29] MEDS ORDERED: Labetalol HCL 5 MG/ML 4ML Injection (Single Dose) IV PRN (14:30)
[2024-04-29] MEDS ORDERED: HydrALAZINE HCl 10 MG Tab PO SCH (16:00)
[2024-04-29] MEDS ORDERED: Isosorbide Mononitrate 30 MG TABCR PO SCH (16:00)
[2024-04-29] MEDS ORDERED: Metoprolol Succinate 50 MG TABCR PO ONE (16:00)
[2024-04-29] MEDS ORDERED: HydrALAZINE HCl 20 MG / ML 1ML Vial IV PRN (16:15)
--- NOTE | 2024-04-29 17:14 | NUR ---
Pt. is awake in bed when he welcomes my visit. Pt. is pleasant. Facilitate a life review and considered matters of shannan and belief. Pts. spouse arrived at bedside. Pastoral care is given. Prayed with Pt. Pt. verbalized gratitude for the spiritual care visit.
--- NOTE | 2024-04-29 18:29 | NUR ---
STRESS TEST COMPLETED. BLOOD PRESSURE IMPROVED WITH PO MEDS WELL IV. AT BEDSIDE. PATIENT CONTINUES TO DENY CHEST PAIN AT THIS TIME. INTERMIT HEADACHE WITH ELEVATED BLOOD PRESSURE. PRN MIRALAX GIVEN FOR CONSTIPATION. REMAINS ON ROOM AIR. NO CHANGES TO TELE. UP TO BATHROOM IND. CALL LIGHT IN REACH.
[2024-04-29] MEDS ORDERED: Melatonin 3 MG Tab PO SCH (21:00)
[2024-04-30 00:04] VITALS: BP 164/81
[2024-04-30 01:01] VITALS: BP 147/87
[2024-04-30 02:36] VITALS: BP 135/86
[2024-04-30 04:10] VITALS: BP 112/71
--- NOTE | 2024-04-30 04:29 | NUR ---
SHIFT SUMMARY PT HAS BEEN PLEASANT BUT NON COMPLIANT WITH MEDICATION UNTILL THIS NOC SHIFT. REQUESTED TO SPEAK TO TOWER EXCAVATOR OPERATOR FOR CLARIFICATION OF NIGHT TIME MEDS. AFTER SPEAKING WITH CHARGE AND THIS RN, PT AGREED TO TAKE HIS MEDS PRESCRIBED. SBP IN 180'S AT BEGINNING OF SHIFT. AFTER MEDICATIONS, PT BP WAS DROPPED TO 112/71. EDUCATED PT ON IMPORTANCE OF FOLLOWING MEDICATION SCHEDULE, IN ORDER TO MAINTAIN NOW MORE NORMAL BP. WILL CONTINUE TO MONITOR.
[2024-04-30 05:52] LABS: BASOPHILS ABSOLUTE AUTO 0.06 K/mm3 (0.00-0.23); BASOPHILS PERCENT AUTO 1 % (0-2); EOSINOPHILS ABSOLUTE AUTO 0.29 K/mm3 (0.00-0.68); EOSINOPHILS PERCENT AUTO 5 % (0-6); Hematocrit 37.6 % (37.0-53.0); Hemoglobin 13.2 g/dL (13.5-17.5); IMMATURE GRAN ABSOLUTE AUTO 0.01 K/mm3 (0.00-0.10); IMMATURE GRAN PERCENT AUTO 0 % (0-1); LYMPHOCYTES ABSOLUTE AUTO 1.27 K/mm3 (0.84-5.20); LYMPHOCYTES PERCENT AUTO 20 % (21-46); MONOCYTES ABSOLUTE AUTO 0.76 K/mm3 (0.16-1.47); MONOCYTES PERCENT AUTO 12 % (4-13); Mean Corpuscular HGB 30.1 pg (26.0-34.0); Mean Corpuscular HGB Conc 35.1 g/dL (31.5-36.5); Mean Corpuscular Volume 86 fL (80-100); Mean Platelet Volume 10.2 fL (9.1-12.4); NEUTROPHILS ABSOLUTE AUTO 4.01 K/mm3 (1.96-9.15); NEUTROPHILS PERCENT AUTO 63 % (41-73); Platelet Count 211 K/mm3 (150-400); RDW Coefficient Variation 12.5 % (11.7-14.2); RDW Standard Deviation 39.4 fL (35.1-46.3); Red Blood Cell Count 4.38 M/mm3 (4.30-5.90)
[2024-04-30 06:18] VITALS: BP 147/80
[2024-04-30 06:19] LABS: Bun/Creatinine Ratio 12.4 (12.0-20.0); Calcium, Blood 8.8 mg/dL (8.5-10.1); Creatinine, Blood 0.89 mg/dL (0.60-1.20); Potassium, Blood 3.6 mmol/L (3.5-5.5)
[2024-04-30 08:02] VITALS: BP 150/87
[2024-04-30] MEDS ORDERED: Metoprolol Succinate 50 MG TABCR PO SCH (09:00)
[2024-04-30] MEDS ORDERED: Bisacodyl 5 MG TabEC PO PRN (09:40)
[2024-04-30] MEDS ORDERED: Sennosides 8.6 MG Tab PO SCH (09:40)
--- NOTE | 2024-04-30 14:02 | NUR ---
PT DISCHARGED 1235 WITH INSTRUCTIONS. WHEELCHAIR OUT TO PRIVATE CAR - NO NEW MEDS.
== END 2024-04-30 12:39 | disposition home or self-care (01) ==
LOC: ER 13:36 → MEDS 13:37
PROVIDERS: Emergency Medicine; ADMIT Internal Medicine
DX: I25.118 Atherosclerotic heart disease of native coronary artery with other forms of angina pectoris (principal); E78.5 Hyperlipidemia, unspecified; C61 Malignant neoplasm of prostate; R91.1 Solitary pulmonary nodule; I11.0 Hypertensive heart disease with heart failure; I50.42 Chronic combined systolic (congestive) and diastolic (congestive) heart failure; I16.0 Hypertensive urgency; J44.9 Chronic obstructive pulmonary disease, unspecified; Z88.0 Allergy status to penicillin; Z82.2 Family history of deafness and hearing loss; Z88.8 Allergy status to other drugs, medicaments and biological substances; Z87.891 Personal history of nicotine dependence; Z95.1 Presence of aortocoronary bypass graft
CPT/HCPCS: 36415; 71046; 78452; 80048; 80053; 83690; 84484; 85025; 93005; 93010; 93017; 96372; 96374; 96375; 96376; 99285-25; A9270; A9500; G0378; J0360; J0706; J1650; J2785

== ENCOUNTER 2024-08-01 09:13 | Inpatient (IN) | payer MEDICARE ==
[~2024-08-01] VITALS: Ht 167.6 cm; Wt 65.9 kg
[~2024-08-01 09:13] MED LIST changes: +Acetaminophen650 M1 PO; +Aspir 8181 MG PO; +C COMPLEX PO; +CO Q10200 MG PO; +VITAMIN D31000 UNI1 PO
[2024-08-01 09:50] LABS: BASOPHILS ABSOLUTE AUTO 0.04 K/mm3 (0.00-0.23); BASOPHILS PERCENT AUTO 1 % (0-2); EOSINOPHILS ABSOLUTE AUTO 0.29 K/mm3 (0.00-0.68); EOSINOPHILS PERCENT AUTO 5 % (0-6); Hematocrit 35.8 % (37.0-53.0); Hemoglobin 13.1 g/dL (13.5-17.5); IMMATURE GRAN ABSOLUTE AUTO 0.03 K/mm3 (0.00-0.10); IMMATURE GRAN PERCENT AUTO 1 % (0-1); LYMPHOCYTES ABSOLUTE AUTO 1.56 K/mm3 (0.84-5.20); LYMPHOCYTES PERCENT AUTO 27 % (21-46); MONOCYTES ABSOLUTE AUTO 0.66 K/mm3 (0.16-1.47); MONOCYTES PERCENT AUTO 11 % (4-13); Mean Corpuscular HGB 29.2 pg (26.0-34.0); Mean Corpuscular HGB Conc 36.6 g/dL (31.5-36.5); Mean Corpuscular Volume 80 fL (80-100); Mean Platelet Volume 9.6 fL (9.1-12.4); NEUTROPHILS ABSOLUTE AUTO 3.29 K/mm3 (1.96-9.15); NEUTROPHILS PERCENT AUTO 56 % (41-73); Platelet Count 411 K/mm3 (150-400); RDW Coefficient Variation 11.9 % (11.7-14.2); RDW Standard Deviation 34.4 fL (35.1-46.3); Red Blood Cell Count 4.48 M/mm3 (4.30-5.90); White Blood Cell Count 5.87 K/mm3 (4.00-11.30)
[2024-08-01 10:13] LABS: Albumin, Blood 3.7 g/dL (3.4-5.0); Bilirubin, Total 0.6 mg/dL (0.1-1.0); Bun/Creatinine Ratio 12.1 (12.0-20.0); Calcium, Blood 8.9 mg/dL (8.5-10.1); Creatinine, Blood 1.07 mg/dL (0.60-1.20); Globulin, Blood 3.6 g/dL (2.2-4.0); Potassium, Blood 3.2 mmol/L (3.5-5.5); Total Protein, Blood 7.3 g/dL (6.4-8.2)
[2024-08-01] MEDS ORDERED: NS 1,000 ML IV SCH (10:45)
[2024-08-01] MEDS ORDERED: Ondansetron HCl 2 MG / ML 2ML Vial IV ONE (12:55)
[2024-08-01 14:49] LABS: Source, Urine Clean Catch
[2024-08-01 15:04] LABS: Appearance, Urine Clear (Clear); Bilirubin, Urine Neg (Neg); Blood, Urine Neg (Neg); Glucose Qualitative, Urine Neg (Neg); Ketones, Urine 2+ (Neg); Leukocyte Esterase, Urine Neg (Neg); Nitrite, Urine Neg (Neg); Protein, Urine Neg (Neg); Specific Gravity, Urine 1.005 (1.003-1.022); Urobilinogen, Urine NORM (Normal); pH, Urine 6.5 (5.0-8.0)
[2024-08-01] MEDS ORDERED: Acetaminophen 325 MG TABLET PO PRN (15:05)
[2024-08-01] MEDS ORDERED: Melatonin 5 MG Tablet PO PRN (15:05)
[2024-08-01] MEDS ORDERED: Ondansetron 4 MG TAB PO PRN (15:10)
[2024-08-01] MEDS ORDERED: FLU VACC TS2024-25(6MOS UP)/PF 45 MCG/0.5 ML SYRINGE IM PRN (15:10)
[2024-08-01 15:13] LABS: Sodium, Urine, Random 43 mmol/L (20-110)
[2024-08-01] MEDS ORDERED: Nitroglycerin 0.4 MG SUBL SL PRN (15:20)
[2024-08-01 15:52] LABS: Color, Urine Pale Yellow (P-Yellow)
[2024-08-01 16:34] LABS: Osmolality, Urine 313 mos/kg (15-1400)
[2024-08-01 16:36] LABS: Bun/Creatinine Ratio 15.1 (12.0-20.0); Calcium, Blood 8.6 mg/dL (8.5-10.1); Creatinine, Blood 0.93 mg/dL (0.60-1.20); Potassium, Blood 3.2 mmol/L (3.5-5.5)
[2024-08-01 18:39] LABS: Influenza A, PCR NEGATIVE (NEGATIVE); Influenza B, PCR NEGATIVE (NEGATIVE); Resp Syncytial Virus, PCR NEGATIVE (NEGATIVE); SARS-Cov-2 (COVID-19) PCR, MMC NEGATIVE (NEGATIVE)
[2024-08-01] MEDS ORDERED: Potassium Chloride 20 MEQ/15 ML UDC PO ONE (19:00)
[2024-08-01] MEDS ORDERED: Magnesium Sulf 2 GM/Water 50ML 50 ML IV STA (19:03)
[2024-08-01 20:57] VITALS: BP 146/70
[2024-08-01] MEDS ORDERED: Metoprolol Succinate 50 MG TABCR PO SCH (21:00)
[2024-08-01] MEDS ORDERED: Lactobacil 2-S.Thermo-Bifido 1 1 Cap PO SCH (21:00)
[2024-08-01] MEDS ORDERED: HydrALAZINE HCl 10 MG Tab PO SCH (21:00)
[2024-08-02] MEDS ORDERED: Lactated Ringer's 500 ML IV SCH ×2 (01:00→09:00)
[2024-08-02 05:02] VITALS: BP 139/74
[2024-08-02] MEDS ORDERED: Pantoprazole Sodium 40 MG Tab PO SCH (06:00)
--- NOTE | 2024-08-02 06:06 | NUR ---
NEW ADMIT/PIPE LINE WALKER SUMMARY NEW ADMIT FOR HYPONATREMIA. PT REPORTING N&V, DIARRHEA, AND ABDOMINAL PAIN FOR PAST WEEK. PT HAD SYNCOPAL EPISODE AT HOME DURING BOWEL MOVEMENT. PT A/OX4. ARRIVED TO ROOM IN WHEELCHAIR ABLE TO TRANSFER WITH ONE ASSIST. PT ABLE TO MAKE NEEDS KNOWN. PT IS A FULL CODE. EXTENSIVE CARDIAC HX. PT ABLE TO RECALL SOME OF HOME MEDS BUT REPORTS HIS DAUGTHER ASSIST WITH HIS MEDICATIONS. PT LIVES IN A SINGLE STORY HOME WITH SPOUSE AND HAS RAMP TO ENTRANCE. PT DENIES SAFETY CONCERNS. PT CONTINUES TO HAVE LOOSES STOOL. PT HAS GENERALIZED WEAKNESS AND UNSTEADY ON FEET. PT HAS EPISODES OF DIZZINESS. EDUCATED PT ON FALL RISK REDUCTION. ORIENTED PT TO ROOM AND CALL LIGHT. PT DENIES IGNITION SOURCES. PT HAS RECENT HX OF INFECTION ON MEATUS. PT WAS USING NYSTATIN CREAM BUT RECENTLY STOPPED DUE TO NOT HAVING PRESCRIPTION AVAILABLE. NOTED RED INFLAMMED AREA AND MOISTURE AROUND MEATUS ON ASSESSMENT. CALL TO HOSPITALIST. NEW ORDER FOR NYSTATIN CREAM AND NEW ORDER FOR GI PANEDL/C-DIFF RULE OUT. WCTM UNTIL REPORT GIVEN TO ONCOMING NURSE.
[2024-08-02 06:44] LABS: BASOPHILS ABSOLUTE AUTO 0.03 K/mm3 (0.00-0.23); BASOPHILS PERCENT AUTO 1 % (0-2); EOSINOPHILS PERCENT AUTO 3 % (0-6); Hemoglobin 12.8 g/dL (13.5-17.5); IMMATURE GRAN ABSOLUTE AUTO 0.03 K/mm3 (0.00-0.10); IMMATURE GRAN PERCENT AUTO 1 % (0-1); LYMPHOCYTES ABSOLUTE AUTO 1.02 K/mm3 (0.84-5.20); LYMPHOCYTES PERCENT AUTO 18 % (21-46); MONOCYTES PERCENT AUTO 12 % (4-13); Mean Corpuscular HGB 29.5 pg (26.0-34.0); Mean Corpuscular HGB Conc 36.6 g/dL (31.5-36.5); Mean Corpuscular Volume 81 fL (80-100); Mean Platelet Volume 9.6 fL (9.1-12.4); NEUTROPHILS ABSOLUTE AUTO 3.82 K/mm3 (1.96-9.15); NEUTROPHILS PERCENT AUTO 66 % (41-73); Platelet Count 373 K/mm3 (150-400); RDW Standard Deviation 35.1 fL (35.1-46.3); Red Blood Cell Count 4.34 M/mm3 (4.30-5.90)
[2024-08-02 07:04] LABS: Albumin, Blood 3.5 g/dL (3.4-5.0); Albumin/Globulin Ratio 1.1 (0.8-1.8); Bilirubin, Total 0.4 mg/dL (0.1-1.0); Bun/Creatinine Ratio 13.1 (12.0-20.0); Creatinine, Blood 0.92 mg/dL (0.60-1.20); Globulin, Blood 3.3 g/dL (2.2-4.0); Magnesium, Blood 1.9 mg/dL (1.6-2.4); Phosphorus, Blood 2.7 mg/dL (2.5-4.9); Potassium, Blood 3.5 mmol/L (3.5-5.5); Total Protein, Blood 6.8 g/dL (6.4-8.2)
[2024-08-02 07:14] VITALS: BP 134/62
[2024-08-02] MEDS ORDERED: Tamsulosin HCl 0.4 MG Cap PO SCH (09:00)
[2024-08-02] MEDS ORDERED: Clopidogrel Bisulfate 75 MG Tab PO SCH (09:00)
[2024-08-02] MEDS ORDERED: Enoxaparin 40 MG/0.4 ML SYR SC SCH (09:00)
[2024-08-02] MEDS ORDERED: Aspirin 81 MG TabEC PO SCH (09:00)
[2024-08-02] MEDS ORDERED: Nystatin 100,000 Unit/GM CREAM 15 GM TOP SCH (09:00)
[2024-08-02] MEDS ORDERED: Metoprolol Succinate 50 MG TABCR PO SCH (09:00)
[2024-08-02] MEDS ORDERED: Lisinopril 20 MG Tab PO SCH (09:00)
[2024-08-02 09:14] VITALS: BP 152/69
[2024-08-02 10:05] LABS: C DIFFICILE DNA NEGATIVE (Negative)
[2024-08-02] MEDS ORDERED: Benzocaine Oral Spray 0.5ML UD MT PRN (13:45)
[2024-08-02 15:15] LABS: Bun/Creatinine Ratio 11.7 (12.0-20.0); Calcium, Blood 8.2 mg/dL (8.5-10.1); Creatinine, Blood 0.94 mg/dL (0.60-1.20); Potassium, Blood 3.2 mmol/L (3.5-5.5)
[2024-08-02 16:10] VITALS: BP 143/68
--- NOTE | 2024-08-02 16:34 | NUR ---
SHIFT SUMMARY: PATIENT A/OX4, CALM, PLEASANT AND COOPERATIVE c CARE. PATIENT DENIES CP/PRESSURE, N/V, SOB AND DIZZINESS. PATIENT REPORTS SORE THROAT FROM COUGHING, MEDICATED c BENZOCAINE ORAL SPRAY X1 c MOD EFFECT. PATIENT ON HH DIET, TOLERATING DIET WELL. PATIENT CONTINENT OF BOWEL/BLADDER, AMBULATES TO BATHROOM c SBA/FWW AND HAD 3 LOOSE STOOL THIS SHIFT. VITAL SIGNS REVIEWED. PATIENT RECEIVED SCHEDULED MEDS PER EMAR. PATIENT HAS NO COMPLAINTS OR NO NEW CONCERNED THIS SHIFT. CALL LIGHT IN REACH.
[2024-08-02 20:08] VITALS: BP 118/54
[2024-08-02 21:49] VITALS: BP 132/58
[2024-08-03 02:45] VITALS: BP 148/71
--- NOTE | 2024-08-03 03:19 | NUR ---
OFFICE ADMINISTRATIVE ASSISTANT SUMMARY: PT A&O X4. MAKES NEEDS KNOWN. PT MEDICATED X1 WITH BNZOCAINE ORAL SPRAY PER EMAR ORDER FOR SORE TRHOAT; EFFECTIVE. NO REPORTED LOOSE STOOL THIS SHIFT PT INDEPENDENT IN ROOM WITH CARES. N ACUTE CHANGES T/O SHIFT. BED IN LOWEST POSITION, CALL LIGHT IN REACH. CARES CONTINUE ORDERED.
--- NOTE | 2024-08-03 04:22 | NUR ---
DR MEYERS NOTIFIED THAT PT DID NOT HAVE AM LABS PER PROGRESS NOTES PLAN. CBC AND CHEM PROFILE RX'D.
[2024-08-03 05:46] LABS: BASOPHILS ABSOLUTE AUTO 0.04 K/mm3 (0.00-0.23); BASOPHILS PERCENT AUTO 1 % (0-2); EOSINOPHILS ABSOLUTE AUTO 0.34 K/mm3 (0.00-0.68); EOSINOPHILS PERCENT AUTO 8 % (0-6); Hematocrit 32.5 % (37.0-53.0); Hemoglobin 11.9 g/dL (13.5-17.5); IMMATURE GRAN ABSOLUTE AUTO 0.02 K/mm3 (0.00-0.10); IMMATURE GRAN PERCENT AUTO 0 % (0-1); LYMPHOCYTES ABSOLUTE AUTO 1.01 K/mm3 (0.84-5.20); LYMPHOCYTES PERCENT AUTO 23 % (21-46); MONOCYTES ABSOLUTE AUTO 0.53 K/mm3 (0.16-1.47); MONOCYTES PERCENT AUTO 12 % (4-13); Mean Corpuscular HGB 29.6 pg (26.0-34.0); Mean Corpuscular HGB Conc 36.6 g/dL (31.5-36.5); Mean Corpuscular Volume 81 fL (80-100); Mean Platelet Volume 9.7 fL (9.1-12.4); NEUTROPHILS ABSOLUTE AUTO 2.51 K/mm3 (1.96-9.15); NEUTROPHILS PERCENT AUTO 57 % (41-73); Platelet Count 294 K/mm3 (150-400); RDW Coefficient Variation 12.1 % (11.7-14.2); RDW Standard Deviation 35.7 fL (35.1-46.3); Red Blood Cell Count 4.02 M/mm3 (4.30-5.90); White Blood Cell Count 4.45 K/mm3 (4.00-11.30)
[2024-08-03 05:55] VITALS: BP 154/76
[2024-08-03 06:11] LABS: Albumin, Blood 3.1 g/dL (3.4-5.0); Albumin/Globulin Ratio 1.1 (0.8-1.8); Bilirubin, Total 0.4 mg/dL (0.1-1.0); Bun/Creatinine Ratio 11.6 (12.0-20.0); Calcium, Blood 8.6 mg/dL (8.5-10.1); Creatinine, Blood 0.78 mg/dL (0.60-1.20); Globulin, Blood 2.9 g/dL (2.2-4.0); Potassium, Blood 3.2 mmol/L (3.5-5.5)
--- NOTE | 2024-08-03 07:26 | NUR ---
NOTE: PATIENT AM LAB DRAWN RESULTS OF THE FOLLOWING; K 3.[address]IFIED DR. CHUCHO walden THIS CONCERNED, RECEIVED ORDER TO GIVE OT DOSE PO 40 MEQ K, 500 MLS LR BOLUS AND MAGNESIUM LAB DRAWN NOW.
[2024-08-03] MEDS ORDERED: Potassium Chloride 20 MEQ TabCR PO ONE (07:35)
[2024-08-03] MEDS ORDERED: Lactated Ringer's 1,000 ML IV ONE ×2 (07:35→18:00)
[2024-08-03 07:37] VITALS: BP 144/67
[2024-08-03] MEDS ORDERED: Mag Sulfate 1 GM/D5% 100ML 100 ML IV SCH (08:30)
[2024-08-03 13:51] VITALS: BP 146/62
[2024-08-03 15:25] LABS: Bun/Creatinine Ratio 7.5 (12.0-20.0); Calcium, Blood 8.9 mg/dL (8.5-10.1); Creatinine, Blood 0.93 mg/dL (0.60-1.20); Potassium, Blood 3.5 mmol/L (3.5-5.5)
[2024-08-03 15:41] VITALS: BP 154/72
--- NOTE | 2024-08-03 17:30 | NUR ---
SHIFT SUMMARY: PATIENT A/OX4, CALM, PLEASANT AND COOPERATIVE c CARE. PATIENT DENIES CP/PRESSURE, SOB AND N/V. PATIENT MEDICATED X1 FOR SORE THROAT PER EMAR c MOD EFFECT. PATIENT REPORTS OVERALL, SLIGHT IMPROVEMENT TODAY COMPARED YESTERDAY. PATIENT RECEIVED OT DOSE 40 MEQ K PO, 500 MLS BOLUS LR AND 2 BAG IV MAG SULFATE PER ORDER. PATIENT REPEAT ELECTROLYTE LAB DRAWN THIS PM; K HAS IMPROVED 3.5, NA STILL THE SAME 125. PATIENT AM SCHEDULED METOPROLOL DOSE WERE HELD D/T HR IN THE MID 50'S BPM, DR. RANKIN IS AWARE. PATIENT SAT UP IN THE CHAIR ON/OFF, GOOD APPETITE, CONTINENT OF BOWEL/BLADDER, AMBULATES TO BATHROOM c SBA/FWW T/O SHIFT. PATIENT HAS 2 SOFT TO FORM BM THIS SHIFT. VITAL SIGNS REVIEWED. CALL LIGHT IN REACH.
[2024-08-03 19:23] VITALS: BP 147/72
[2024-08-04 03:25] VITALS: BP 160/85
--- NOTE | 2024-08-04 05:52 | NUR ---
LINING STUFFER SUMMARY: PT A&O X4. MAKES NEEDS KNOWN TO STAFF AND USES CALL LIGHT. PT DENIES PAIN. INDEPENDENT WITH BED MOBILITY. 1 PERSON SBA USING FWW WITH AMBULATING TO BATHROOM. CONTINENT OF BOWEL AND BLADDER. DENIES LOOSE BM T/O SHIFT. MEDICATED WITH PRN ZOFRAN X1 FOR NAUSEA, EFFECTIVE. NO ACUTE CHANGES THIS SHIFT. VSS. BED IN LOWEST POSITION. CALL LIGHT IN REACH. CARES CONTINUE ORDERED.
[2024-08-04 05:53] LABS: BASOPHILS ABSOLUTE AUTO 0.03 K/mm3 (0.00-0.23); BASOPHILS PERCENT AUTO 1 % (0-2); EOSINOPHILS ABSOLUTE AUTO 0.26 K/mm3 (0.00-0.68); EOSINOPHILS PERCENT AUTO 6 % (0-6); Hematocrit 30.8 % (37.0-53.0); Hemoglobin 11.4 g/dL (13.5-17.5); IMMATURE GRAN ABSOLUTE AUTO 0.02 K/mm3 (0.00-0.10); IMMATURE GRAN PERCENT AUTO 1 % (0-1); LYMPHOCYTES ABSOLUTE AUTO 0.76 K/mm3 (0.84-5.20); LYMPHOCYTES PERCENT AUTO 19 % (21-46); MONOCYTES ABSOLUTE AUTO 0.56 K/mm3 (0.16-1.47); MONOCYTES PERCENT AUTO 14 % (4-13); Mean Corpuscular HGB 29.7 pg (26.0-34.0); Mean Corpuscular Volume 80 fL (80-100); Mean Platelet Volume 9.4 fL (9.1-12.4); NEUTROPHILS ABSOLUTE AUTO 2.48 K/mm3 (1.96-9.15); NEUTROPHILS PERCENT AUTO 60 % (41-73); Platelet Count 262 K/mm3 (150-400); RDW Coefficient Variation 12.1 % (11.7-14.2); RDW Standard Deviation 35.1 fL (35.1-46.3); Red Blood Cell Count 3.84 M/mm3 (4.30-5.90); White Blood Cell Count 4.11 K/mm3 (4.00-11.30)
[2024-08-04 06:31] LABS: Bun/Creatinine Ratio 6.6 (12.0-20.0); Calcium, Blood 8.4 mg/dL (8.5-10.1); Creatinine, Blood 0.76 mg/dL (0.60-1.20); Magnesium, Blood 1.4 mg/dL (1.6-2.4); Phosphorus, Blood 2.6 mg/dL (2.5-4.9); Potassium, Blood 3.7 mmol/L (3.5-5.5)
[2024-08-04 07:38] VITALS: BP 149/74
[2024-08-04] MEDS ORDERED: Magnesium Sulf 2 GM/Water 50ML 50 ML IV STA (07:47)
[2024-08-04] MEDS ORDERED: NS 500 ML IV ONE (08:25)
[2024-08-04 14:45] LABS: Bun/Creatinine Ratio 6.2 (12.0-20.0); Calcium, Blood 9.2 mg/dL (8.5-10.1); Creatinine, Blood 0.97 mg/dL (0.60-1.20); Magnesium, Blood 1.8 mg/dL (1.6-2.4); Potassium, Blood 3.6 mmol/L (3.5-5.5)
[2024-08-04 15:50] VITALS: BP 133/81
--- NOTE | 2024-08-04 16:58 | NUR ---
PATIENT A/O X4. PATIENT ABLE TO AMBULATE INDEPENDENTLY IN ROOM WITH FWW. PT HAS IV IN R FOREARM THAT IS SALINE LOCKED. PATIENT ABLE TO CALL FOR ASSISTANCE. CALL LIGHT WITHIN REACH.
[2024-08-04 20:32] VITALS: BP 163/77
--- NOTE | 2024-08-05 04:16 | NUR ---
SHIFT SUMMARY. PATIENT IS A&OX4. PATIENT INDEPENDENT IN ROOM. c FWW. CALLS APPROPRIATELY AND IS ABLE TO MAKE HIS NEEDS KNOWN. THIS SHIFT PATIENT REPORTED FEELING LIKE HE FELT WHEN HE FIRST CAME INTO THE HOSPITAL-HOSPITALIST NOTIFIED AND ORDERED LABS-SEE ORDERS. PATIENT HAD NAUSEA AT BEGINNING OF SHIFT-MEDICATED WITH PRN ZOFRAN PER ORDER WITH REPORTED IMPROVEMENT TO NAUSEA. PATIENT IS RESTING AT THIS TIME WITH RESPIRATIONS EQUAL AND UNLABORED. BED IS LOCKED IN THE LOWEST POSITION WITH CALL LIGHT IN REACH. CARE IS ONGOING.
[2024-08-05 04:21] LABS: Bun/Creatinine Ratio 10.1 (12.0-20.0); Calcium, Blood 9.2 mg/dL (8.5-10.1); Creatinine, Blood 0.89 mg/dL (0.60-1.20); Potassium, Blood 3.8 mmol/L (3.5-5.5)
[2024-08-05 05:49] VITALS: BP 180/87
[2024-08-05 06:14] LABS: BASOPHILS ABSOLUTE AUTO 0.04 K/mm3 (0.00-0.23); BASOPHILS PERCENT AUTO 1 % (0-2); EOSINOPHILS ABSOLUTE AUTO 0.32 K/mm3 (0.00-0.68); EOSINOPHILS PERCENT AUTO 8 % (0-6); Hematocrit 32.9 % (37.0-53.0); Hemoglobin 11.9 g/dL (13.5-17.5); IMMATURE GRAN ABSOLUTE AUTO 0.02 K/mm3 (0.00-0.10); IMMATURE GRAN PERCENT AUTO 1 % (0-1); LYMPHOCYTES ABSOLUTE AUTO 0.88 K/mm3 (0.84-5.20); LYMPHOCYTES PERCENT AUTO 23 % (21-46); MONOCYTES ABSOLUTE AUTO 0.56 K/mm3 (0.16-1.47); MONOCYTES PERCENT AUTO 15 % (4-13); Mean Corpuscular HGB 29.6 pg (26.0-34.0); Mean Corpuscular HGB Conc 36.2 g/dL (31.5-36.5); Mean Corpuscular Volume 82 fL (80-100); NEUTROPHILS ABSOLUTE AUTO 1.99 K/mm3 (1.96-9.15); NEUTROPHILS PERCENT AUTO 52 % (41-73); Platelet Count 262 K/mm3 (150-400); RDW Coefficient Variation 12.4 % (11.7-14.2); Red Blood Cell Count 4.02 M/mm3 (4.30-5.90); White Blood Cell Count 3.81 K/mm3 (4.00-11.30)
[2024-08-05 06:41] LABS: Bun/Creatinine Ratio 8.8 (12.0-20.0); Creatinine, Blood 0.91 mg/dL (0.60-1.20); Magnesium, Blood 1.6 mg/dL (1.6-2.4); Potassium, Blood 3.9 mmol/L (3.5-5.5)
[2024-08-05] MEDS ORDERED: Magnesium Sulf 2 GM/Water 50ML 50 ML IV ONE (07:50)
[2024-08-05 07:55] VITALS: BP 145/83
[2024-08-05 16:05] VITALS: BP 162/78
--- NOTE | 2024-08-05 17:13 | NUR ---
DISHCARGE SUMMARY: PATIENT A/O X 4, HAS BEEN UP IN ROOM INDEPENDENTLY HOWEVER WILL CALL FOR ASSIST WHEN NEEDED. PATIENT MET WITH DR RANKIN AND STATED HE HAD FORGOTTEN TO ADVISE THAT HE WAS ON ON CHLORTHALIDONE MEDICATION. PATIENT HAS IV IN RIGHT AC WHICH IS SALINE LOCKED. PATIENT HAS CALL LIGHT WITHIN REACH AND ADVISED TO CALL FOR ASSITANCE.
[2024-08-05 19:38] LABS: Bun/Creatinine Ratio 12.9 (12.0-20.0); Calcium, Blood 9.4 mg/dL (8.5-10.1); Creatinine, Blood 0.85 mg/dL (0.60-1.20); Potassium, Blood 3.5 mmol/L (3.5-5.5)
[2024-08-05 19:49] VITALS: BP 127/66
[2024-08-05] MEDS ORDERED: Sodium Chloride 1 GM TAB PO ONE (20:35)
[2024-08-05] MEDS ORDERED: Sodium Chloride 3% 50 ML IV SCH (20:45)
[2024-08-05] MEDS ORDERED: Potassium Chloride 20 MEQ TabCR PO ONE (21:00)
[2024-08-05 22:08] LABS: Bun/Creatinine Ratio 11.9 (12.0-20.0); Calcium, Blood 8.8 mg/dL (8.5-10.1); Creatinine, Blood 0.84 mg/dL (0.60-1.20); Potassium, Blood 3.6 mmol/L (3.5-5.5)
[2024-08-06] VITALS (9 sets, daily range): BP systolic 142–191; BP diastolic 70–91
[2024-08-06] MEDS ORDERED: Psyllium 1 EA Pack PO PRN (00:35)
--- NOTE | 2024-08-06 06:07 | NUR ---
SHIFT SUMMARY; PATIENT SLEPT IN LONG INTERVALS, HAD A BM, DID GET METAMUCIL ORDER FROM HOSPITALIST. BUT THE PRUNE JUICE WORKED FASTER. DID NOT NEED ANY PRN MEDS. PATIENT PLEASANT AND EASY TO WORK WITH.
[2024-08-06] MEDS ORDERED: Cosyntropin 0.25 MG / ML 1ML Vial IV SCH (07:00)
[2024-08-06] MEDS ORDERED: Lisinopril 20 MG Tab PO SCH (09:00)
[2024-08-06] MEDS ORDERED: Psyllium 1 EA Pack PO SCH (09:00)
[2024-08-06 10:43] LABS: Bun/Creatinine Ratio 8.6 (12.0-20.0); Calcium, Blood 9.4 mg/dL (8.5-10.1); Creatinine, Blood 0.81 mg/dL (0.60-1.20); Potassium, Blood 4.2 mmol/L (3.5-5.5)
[2024-08-06] MEDS ORDERED: Sodium Chloride 1 GM TAB PO SCH (13:00)
[2024-08-06] MEDS ORDERED: HydrALAZINE HCl 20 MG / ML 1ML Vial IV PRN (16:55)
--- NOTE | 2024-08-06 17:54 | NUR ---
SHIFT SUMMARY MR YIN HAS BEEN UP AMBULATING INDEPENDENTLY AROUND HIS ROOM/BATHROOM. STEADY GAIT. HE DESCRIBES SOME BLURRED VISION AND LIGHTHEADEDNESS THAT HE SAID IS UNCHANGED FROM PAST FEW DAYS. BLOOD PRESSURE ELEVATED, GIVEN IV HYDRALAZINE WITH GOPOD EFFECT. BED LOW, CALL LIGHT IN REACH.
--- NOTE | 2024-08-06 21:02 | NUR ---
PT REFUSING TO TAKE HS MEDICATIONS STATING "I AM NOT TAKING METOPROLOL, DR RANKIN ORDERED LOPRESSOR." THIS NURSE EDUCATED PT ON MEDICATION EDUCATION. PT NOT BELIEVING THIS NURSE, OTR FLATBED DRIVER SPOKE TO PT, PT STILL NOT UNDERSTANDING EDUCATION.
[2024-08-06] MEDS ORDERED: HydrOXYzine Pamoate 25 MG Cap PO PRN (22:10)
[2024-08-07 05:48] VITALS: BP 173/78
--- NOTE | 2024-08-07 06:23 | NUR ---
SHIFT SUMMARY PT A&OX4 AND ANSWERS QUESTIONS APPROPRIATELY. PT SHOWS HEIGHTENED ANXIETY AT START OF SHIFT. PT ABLE TO SELF SOOTH AND SLEEP THROUGH MOST OF SHIFT. HYDROXYSINE ORDERED PRN FOR ANXIETY. PT RECEIVED HS MEDICATIONS. PT HAS ELEVATED BP AND IS GETTING METOPROLOL AND HYDRALAZINE TO TREAT. REMAINING VSS. NO COMPLAINTS OF CP/PRESSURE OR SOB. PT SPENT MOST OF SHIFT RESTING IN BED. NO ACUTE EVENTS AT THIS TIME. PT LEFT IN A POSITION OF SAFETY WITH FALL PRECAUTIONS IN PLACE. REPOSITIONS INDEPENDENTLY. CALL LIGHT IN REACH.
[2024-08-07 07:46] VITALS: BP 146/78
[2024-08-07 09:19] VITALS: BP 161/69
[2024-08-07] MEDS ORDERED: HydrALAZINE HCl 10 MG Tab PO ONE (10:45)
[2024-08-07 11:00] VITALS: BP 160/73
[2024-08-07 11:32] LABS: Calcium, Blood 9.2 mg/dL (8.5-10.1); Creatinine, Blood 0.91 mg/dL (0.60-1.20); Potassium, Blood 3.8 mmol/L (3.5-5.5)
[2024-08-07] MEDS ORDERED: SODCHL1 PO (13:56)
--- NOTE | 2024-08-07 15:25 | NUR ---
DISCHARGE NOTE PT A&OX4. PT ADMITTED DUE TO HYPO-OSMOLAR HYPONATREMIA. PT REPORTS NO PAIN. PT ON ROOM AIR. PT INDEPENDENT IN ROOM. PT TAKES HYDRALAZINE AT HOME. PT HAD A SCHEDULED DOSE THIS MORNING, PERAMETERS NOTED ALSO BEING PRN. CALLED DR. SOSA TO CLARIFY. PT BP WAS 161/69. DR. SOSA, CHANGED PERAMETERS SO THAT THE EMAR WOULD STATE MED IS SCHEDULED, AND REPORTED TO STILL ADMINISTER. IV REMOVED. MEDS FAXED TO PHARMACY. PT SENT WITH SCRIPT OF REPEAT LABS FOR 08-10-24. PT EDUCATED ON DISCHARGE INSTRUCTIONS AND MEDS. PT STATED HE WILL FOLLOW UP WITH DR. RAMIREZ, PT FORGOT DIAMOND, PT WAS CALLED TO [facility] TO PICK IT UP.
[2024-08-07] MEDS ORDERED: HydrALAZINE HCl 10 MG Tab PO SCH (21:00)
== END 2024-08-07 14:37 | disposition home or self-care (01) | DRG 644 ==
LOC: ER 09:13 → ERHOLD 09:14 → MEDS 20:54
PROVIDERS: Family Medicine; Internal Medicine; Nurse Practitioner Acute Care; Student in an Organized Health Care Education/Training Program; ADMIT Student in an Organized Health Care Education/Training Program
DX: E22.2 Syndrome of inappropriate secretion of antidiuretic hormone (principal); C34.32 Malignant neoplasm of lower lobe, left bronchus or lung; I50.22 Chronic systolic (congestive) heart failure; E27.40 Unspecified adrenocortical insufficiency; I11.0 Hypertensive heart disease with heart failure; I73.9 Peripheral vascular disease, unspecified; D64.0 Hereditary sideroblastic anemia; D72.819 Decreased white blood cell count, unspecified; E83.42 Hypomagnesemia; E87.6 Hypokalemia; R19.7 Diarrhea, unspecified; E86.0 Dehydration; C61 Malignant neoplasm of prostate; G47.00 Insomnia, unspecified; F17.210 Nicotine dependence, cigarettes, uncomplicated; Z95.1 Presence of aortocoronary bypass graft; Z95.5 Presence of coronary angioplasty implant and graft; Z88.8 Allergy status to other drugs, medicaments and biological substances; Z88.0 Allergy status to penicillin; Z88.2 Allergy status to sulfonamides; Z79.02 Long term (current) use of antithrombotics/antiplatelets; Z79.82 Long term (current) use of aspirin; I25.2 Old myocardial infarction; Z86.73 Personal history of transient ischemic attack (TIA), and cerebral infarction without residual deficits
CPT/HCPCS: 0241U; 36415; 71045; 74177; 80048; 80053; 80400; 81003; 82436; 82533; 83605; 83690; 83735; 83880; 83930; 83935; 84100; 84300; 84484; 85025; 87493; 93005; 93010; 96361; 96365; 96366; 96372; 99285-25; A9270; G0378; J0360; J0834; J1650; J3475; J7030; J7040; J7120; Q9967